=== PATIENT | female | born 1955 | race Caucasian/White ===

== ENCOUNTER → 2016-04-15 | Outpatient (CLI) | payer OTHER ==
--- NOTE | 2016-04-16 11:04 | ECHOF ---
Referral Reason:R07.89 chest pain MEASUREMENTS -------- HEIGHT: 154.9 cm WEIGHT: 109.8 kg BP: 140/62 RVIDd: 2.2 cm (< 3.3) IVSd: 1.3 cm (0.6 - 1.1) LVIDd: 4.5 cm (3.9 - 5.3) LVPWd: 1.2 cm (0.6 - 1.1) IVSs: 1.6 cm LVIDs: 2.3 cm LVPWs: 1.7 cm LA Diam: 2.8 cm (2.7 - 3.8) LAESV Index (A-L): 10.31 ml/m Ao Diam: 2.8 cm (2.0 - 3.7) MV EXCURSION: 12.842 mm (> 18.000) MV EF SLOPE: 39 mm/s (70 - 150) EPSS: 1.1 cm MV E Gerald: 0.80 m/s MV DecT: 260 ms MV A Gerald: 0.88 m/s MV E/A Ratio: 0.91 FINDINGS -------- Sinus rhythm. This was a technically difficult study with suboptimal views. The left ventricular size is normal. There is mild concentric left ventricular hypertrophy. Overall left ventricular systolic function is normal with, an EF between 60 - 65 %. The right ventricle is normal in size. The left atrium is normal in size. Normal LA size by volume 22+/-6 ml/m2. The right atrium is normal in size. 1.5mg of Definity was utilized for enhancement of images The aortic valve was not well visualized. Normal appearing mitral valve. No mitral regurgitation. The tricuspid valve appears structurally normal. No regurgitation noted The aortic root size is normal. There is no pericardial effusion. CONCLUSIONS -------- 1. Sinus rhythm. 2. The aortic valve was not well visualized. 3. Normal appearing mitral valve. 4. The tricuspid valve appears structurally normal. 5. The aortic root size is normal. 6. There is no pericardial effusion. 7. This was a technically difficult study with suboptimal views. 8. The left ventricular size is normal. 9. There is mild concentric left ventricular hypertrophy. 10. Overall left ventricular systolic function is normal with, an EF between 60 - 65 %. 11. The right ventricle is normal in size. 12. Normal LA size by volume 22+/-6 ml/m2. 13. The right atrium is normal in size. 14. 1.5mg of Definity was utilized for enhancement of images [employer]ILDING [employer]STRUCTION TEACHER: Naida Burnette RDCS
== END | disposition home or self-care (01) ==
LOC: RADECHMAIN 12:54
PROVIDERS: ATTEND Family Medicine
DX: I51.7 Cardiomegaly (principal)
CPT/HCPCS: C8929; Q9957; 93306

== ENCOUNTER 2016-11-05 21:21 | Observation (INO) | payer OTHER ==
[2016-11-05] MEDS ORDERED: RX INFO: IV CONTRAST WAS GIVEN 1 EACH MISC MISCELLANE PRN (21:49)
--- NOTE | 2016-11-05 21:52 | ED ---
General Adult HPI - General Chief complaint: GI Bleed Stated complaint: Rectal Bleeding-on Coumadin Time Seen by Provider: 11/05/16 21:32 Source: patient, RN notes reviewed Mode of arrival: ambulatory Limitations: no limitations - History of Present Illness Initial comments: 61-year-old female presents for evaluation of rectal bleeding. Patient had 3 episodes of bright red rectal bleeding today. Patient is on Coumadin for history of DVT. She had recent INR checked that was supratherapeutic, she was instructed to hold her Coumadin dose for the past 2 days. She also notes left lower abdominal pain. His been present for the past several days. No fevers or chills. No nausea vomiting or diarrhea. Each episode of bleeding was with a bowel movement. She does report significant amount of blood within the toilet. Additional past medical history of hypertension, hypercholesterolemia. - Related Data Home Medications Medication Instructions Recorded Confirmed Latanoprost Ophth [Xalatan 0.005%] 1 drop BOTH EYES HS 10/11/14 11/05/16 Simvastatin [Zocor] 20 mg PO HS 10/11/14 11/05/16 Warfarin [Coumadin] 5 mg PO WEFRSA 04/04/15 11/05/16 Chlorthalidone [Hygroton] 25 mg PO DAILY 11/05/16 11/05/16 Cholecalciferol (Vitamin D3) 2,000 unit PO DAILY 11/05/16 11/05/16 [Vitamin D3] Levothyroxine Sodium [Synthroid] 100 mcg PO DAILY 11/05/16 11/05/16 Losartan [Cozaar] 50 mg PO DAILY 11/05/16 11/05/16 Warfarin [Coumadin] 2.5 mg PO SUTUTH 11/05/16 11/05/16 Allergies Allergy/AdvReac Type Severity Reaction Status Date / Time Latex, Natural Rubber Allergy Rash/Hives Verified 11/05/16 21:56 morphine AdvReac Nausea & Verified 11/05/16 21:56 Vomiting Review of Systems ROS Statement: Those systems with pertinent positive or pertinent negative responses have been documented in the HPI. ROS Other: All systems not noted in ROS Statement are negative. Past Medical History Past Medical History: Deep Vein Thrombosis (DVT), Eye Disorder, GERD/Reflux, Hyperlipidemia, Hypertension, Thyroid Disorder Additional Past Medical History / Comment(s): BACK PAIN, GLAUCOMA History of Any Multi-Drug Resistant Organisms: None Reported Past Surgical History: Tubal Ligation Additional Past Surgical History / Comment(s): ALEX CATARACTS, BENIGN LUMP LEFT WRIST, neck surgery Additional Past Anesthesia/Blood Transfusion Reaction / Comment(s): HAD PONV ONCE, BUT STATES ATE WHEN WASN'T SUPPOSE TO Past Psychological History: No Psychological Hx Reported Smoking Status: Former smoker Past Alcohol Use History: None Reported Past Drug Use History: None Reported - Past Family History Mother Family Medical History: CVA/TIA General Exam Limitations: no limitations General appearance: alert, in no apparent distress Head exam: Present: atraumatic, normocephalic Eye exam: Present: normal appearance, PERRL ENT exam: Present: mucous membranes moist Neck exam: Present: normal inspection. Absent: tenderness Respiratory exam: Present: normal lung sounds bilaterally. Absent: respiratory distress Cardiovascular Exam: Present: regular rate, normal rhythm GI/Abdominal exam: Present: soft, tenderness (Left lower quadrant). Absent: guarding, rebound Rectal exam: Present: normal inspection, normal rectal tone Extremities exam: Present: normal inspection, normal capillary refill. Absent: pedal edema Back exam: Present: normal inspection Neurological exam: Present: alert, oriented X3, CN II-XII intact. Absent: motor sensory deficit Psychiatric exam: Present: normal affect, normal mood Skin exam: Present: warm, dry, intact. Absent: cyanosis, diaphoretic Course Vital Signs 11/05/16 21:26 Temperature 98.4 F Pulse Rate 82 Respiratory 18 Rate Blood Pressure 139/65 O2 Sat by Pulse 97 Oximetry Medical Decision Making - Medical Decision Making 59-year-old female presents chief complaint of left lower quadrant abdominal pain and rectal bleeding. Patient has no signs of active bleeding on examination, Hemoccult is negative although there has minimal stool in the rectal vault. She is on Coumadin. INR is subtherapeutic at 1.8. Hemoglobin stable at 13.7. She does have an elevated white blood cell count 14.8, creatinine of 1.8 from baseline of 1.1. I would like to obtain a CT of the abdomen and pelvis to evaluate for diverticulitis or acute diverticular bleeding , however the patient's serum creatinine is elevated. X-rays obtained negative for obstruction or intraperitoneal air. Patient is started on antibiotics for empiric treatment of diverticulitis. Rectal bleeding likely secondary to diverticulitis. Patient will be admitted for IV antibiotics, IV hydration for acute kidney injury and further evaluation treatment. Diagnosis: Acute kidney injury, diverticulitis, GI bleed - Lab Data Result diagrams: 11/05/16 21:51 11/05/16 21:48 Lab Results 11/05/16 11/05/16 11/05/16 Range/Units 21:48 21:48 21:48 WBC (3.8-10.6) k/uL RBC (3.80-5.40) m/uL Hgb (11.4-16.0) gm/dL Hct (34.0-46.0) % MCV (80.0-100.0) fL MCH (25.0-35.0) pg MCHC (31.0-37.0) g/dL RDW (11.5-15.5) % Plt Count (150-450) k/uL Neutrophils % % Lymphocytes % % Monocytes % % Eosinophils % % Basophils % % Neutrophils # (1.3-7.7) k/uL Lymphocytes # (1.0-4.8) k/uL Monocytes # (0-1.0) k/uL Eosinophils # (0-0.7) k/uL Basophils # (0-0.2) k/uL PT 17.1 H (9.0-12.0) sec INR 1.8 H (<1.2) APTT 30.3 H (22.0-30.0) sec Sodium 137 (137-145) mmol/L Potassium 3.9 (3.5-5.1) mmol/L Chloride 100 (98-107) mmol/L Carbon Dioxide 23 (22-30) mmol/L Anion Gap 14 mmol/L BUN 41 H (7-17) mg/dL Creatinine 1.80 H (0.52-1.04) mg/dL Est GFR (MDRD) Af Amer 35 (>60 ml/min/1.73 sqM) Est GFR (MDRD) Non-Af 29 (>60 ml/min/1.73 sqM) Glucose 132 H (74-99) mg/dL Plasma Lactic Acid Donnie 1.8 (0.7-2.0) mmol/L Calcium 9.4 (8.4-10.2) mg/dL Total Bilirubin 0.4 (0.2-1.3) mg/dL AST 21 (14-36) U/L ALT 30 (9-52) U/L Alkaline Phosphatase 82 (38-126) U/L Troponin I (0.000-0.034) ng/mL Total Protein 7.4 (6.3-8.2) g/dL Albumin 4.1 (3.5-5.0) g/dL Urine Color Urine Appearance (Clear) Urine pH (5.0-8.0) Ur Specific [place] (1.001-1.035) Urine Protein (Negative) Urine Glucose (UA) (Negative) Urine Ketones (Negative) Urine Blood (Negative) Urine Nitrite (Negative) Urine Bilirubin (Negative) Urine Urobilinogen (<2.0) mg/dL Ur Leukocyte Esterase (Negative) Urine RBC (0-5) /hpf Urine WBC (0-5) /hpf Ur Squamous Epith Cells (0-4) /hpf Urine Bacteria (None) /hpf Hyaline Casts (0-2) /lpf Stool Occult Blood (Negative) Blood Type Blood Type Recheck Antibody Screen Spec Expiration Date 11/05/16 11/05/16 11/05/16 Range/Units 21:48 21:48 21:51 WBC 14.8 H (3.8-10.6) k/uL RBC 4.50 (3.80-5.40) m/uL Hgb 13.7 (11.4-16.0) gm/dL Hct 40.5 (34.0-46.0) % MCV 89.9 (80.0-100.0) fL MCH 30.5 (25.0-35.0) pg MCHC 33.9 (31.0-37.0) g/dL RDW 14.6 (11.5-15.5) % Plt Count 233 (150-450) k/uL Neutrophils % 73 % Lymphocytes % 18 % Monocytes % 5 % Eosinophils % 3 % Basophils % 0 % Neutrophils # 10.8 H (1.3-7.7) k/uL Lymphocytes # 2.7 (1.0-4.8) k/uL Monocytes # 0.7 (0-1.0) k/uL Eosinophils # 0.4 (0-0.7) k/uL Basophils # 0.1 (0-0.2) k/uL PT (9.0-12.0) sec INR (<1.2) APTT (22.0-30.0) sec Sodium (137-145) mmol/L Potassium (3.5-5.1) mmol/L Chloride (98-107) mmol/L Carbon Dioxide (22-30) mmol/L Anion Gap mmol/L BUN (7-17) mg/dL Creatinine (0.52-1.04) mg/dL Est GFR (MDRD) Af Amer (>60 ml/min/1.73 sqM) Est GFR (MDRD) Non-Af (>60 ml/min/1.73 sqM) Glucose (74-99) mg/dL Plasma Lactic Acid Donnie (0.7-2.0) mmol/L Calcium (8.4-10.2) mg/dL Total Bilirubin (0.2-1.3) mg/dL AST (14-36) U/L ALT (9-52) U/L Alkaline Phosphatase (38-126) U/L Troponin I <0.012 (0.000-0.034) ng/mL Total Protein (6.3-8.2) g/dL Albumin (3.5-5.0) g/dL Urine Color Urine Appearance (Clear) Urine pH (5.0-8.0) Ur Specific [place] (1.001-1.035) Urine Protein (Negative) Urine Glucose (UA) (Negative) Urine Ketones (Negative) Urine Blood (Negative) Urine Nitrite (Negative) Urine Bilirubin (Negative) Urine Urobilinogen (<2.0) mg/dL Ur Leukocyte Esterase (Negative) Urine RBC (0-5) /hpf Urine WBC (0-5) /hpf Ur Squamous Epith Cells (0-4) /hpf Urine Bacteria (None) /hpf Hyaline Casts (0-2) /lpf Stool Occult Blood (Negative) Blood Type A Positive Blood Type Recheck No Antibody Screen NEGATIVE Spec Expiration Date 11/08/2016 - 234711/05/16 11/05/16 Range/Units 21:51 23:20 WBC (3.8-10.6) k/uL RBC (3.80-5.40) m/uL Hgb (11.4-16.0) gm/dL Hct (34.0-46.0) % MCV (80.0-100.0) fL MCH (25.0-35.0) pg MCHC (31.0-37.0) g/dL RDW (11.5-15.5) % Plt Count (150-450) k/uL Neutrophils % % Lymphocytes % % Monocytes % % Eosinophils % % Basophils % % Neutrophils # (1.3-7.7) k/uL Lymphocytes # (1.0-4.8) k/uL Monocytes # (0-1.0) k/uL Eosinophils # (0-0.7) k/uL Basophils # (0-0.2) k/uL PT (9.0-12.0) sec INR (<1.2) APTT (22.0-30.0) sec Sodium (137-145) mmol/L Potassium (3.5-5.1) mmol/L Chloride (98-107) mmol/L Carbon Dioxide (22-30) mmol/L Anion Gap mmol/L BUN (7-17) mg/dL Creatinine (0.52-1.04) mg/dL Est GFR (MDRD) Af Amer (>60 ml/min/1.73 sqM) Est GFR (MDRD) Non-Af (>60 ml/min/1.73 sqM) Glucose (74-99) mg/dL Plasma Lactic Acid Donnie (0.7-2.0) mmol/L Calcium (8.4-10.2) mg/dL Total Bilirubin (0.2-1.3) mg/dL AST (14-36) U/L ALT (9-52) U/L Alkaline Phosphatase (38-126) U/L Troponin I (0.000-0.034) ng/mL Total Protein (6.3-8.2) g/dL Albumin (3.5-5.0) g/dL Urine Color Yellow Urine Appearance Cloudy H (Clear) Urine pH 5.0 (5.0-8.0) Ur Specific [place] 1.020 (1.001-1.035) Urine Protein Negative (Negative) Urine Glucose (UA) Negative (Negative) Urine Ketones Negative (Negative) Urine Blood Negative (Negative) Urine Nitrite Negative (Negative) Urine Bilirubin Negative (Negative) Urine Urobilinogen <2.0 (<2.0) mg/dL Ur Leukocyte Esterase Trace H (Negative) Urine RBC <1 (0-5) /hpf Urine WBC 5 (0-5) /hpf Ur Squamous Epith Cells 3 (0-4) /hpf Urine Bacteria Occasional H (None) /hpf Hyaline Casts 10 H (0-2) /lpf Stool Occult Blood Negative (Negative) Blood Type Blood Type Recheck Antibody Screen Spec Expiration Date Disposition Clinical Impression: Lower GI bleed, Diverticulitis, Acute kidney injury Disposition: ADMITTED IP TO THIS [facility] Condition: Stable Referrals: Min Pacheco MD [Primary Care Provider] - 1-2 days Decision to Admit Reason: Admit from EC Decision Date: 11/06/16 Decision Time: 23:35
[2016-11-05 21:59] LABS: Basophils # (A) 0.1 k/uL (0-0.2); Basophils % (A) 0 %; CH 31.7; CHCM 35.4; Eosinophils # (A) 0.4 k/uL (0-0.7); Eosinophils % (A) 3 %; HCT 40.5 % (34.0-46.0); HDW 2.66; HGB 13.7 gm/dL (11.4-16.0); Luc # (Auto) 0.22; Luc % (Auto) 2; Lymphocytes # (A) 2.7 k/uL (1.0-4.8); Lymphocytes % (A) 18 %; MCH 30.5 pg (25.0-35.0); MCHC 33.9 g/dL (31.0-37.0); MCV 89.9 fL (80.0-100.0); Monocytes # (A) 0.7 k/uL (0-1.0); Monocytes % (A) 5 %; Neutrophils # (A) 10.8 k/uL (1.3-7.7); Neutrophils % (A) 73 %; RDW 14.6 % (11.5-15.5); WBC 14.8 k/uL (3.8-10.6); WBC (Perox) 15.34
[2016-11-05 22:07] LABS: INR 1.8 (<1.2); Partial Thromboplastin Time 30.3 sec (22.0-30.0); Prothrombin Time 17.1 sec (9.0-12.0)
[2016-11-05 22:08] LABS: Calcium 9.4 mg/dL (8.4-10.2); Potassium 3.9 mmol/L (3.5-5.1); Total Bilirubin 0.4 mg/dL (0.2-1.3); Total Protein 7.4 g/dL (6.3-8.2)
--- NOTE | 2016-11-05 23:23 | XR ---
EXAM: XR Abdomen Complete, 2 or More Views CLINICAL HISTORY: Reason: Pain TECHNIQUE: Frontal view of the abdomen/pelvis with upright view of the abdomen. COMPARISON: No relevant prior studies available. FINDINGS: Intraperitoneal space: No free air. Gastrointestinal tract: Stool throughout the colon. No dilation. Organs: Cholecystectomy clips noted. Bones/joints: Unremarkable. IMPRESSION: No acute findings. Stool noted throughout the colon.
[2016-11-05 23:30] LABS: Appearance,Urine Cloudy (Clear); Bacteria,Urine Occasional /hpf; Bilirubin,Urine Negative (Negative); Glucose,Urine (UA) Negative (Negative); Ketones,Urine Negative (Negative); Leukocyte Esterase,Urine Trace (Negative); Nitrite,Urine Negative (Negative); Particle Count 2291; Protein,Urine Negative (Negative); RBC,Urine <1 /hpf (0-5); Squamous Epithelial Cell,Urine 3 /hpf (0-4); UA Billing (MACRO vs. MICRO) MICRO; Urobilinogen,Urine <2.0 mg/dL (<2.0); WBC,Urine 5 /hpf (0-5)
[2016-11-06] MEDS ORDERED: NALOXONE 0.4 MG/ML 1 ML VIAL IV PRN
[2016-11-06] MEDS ORDERED: ACETAMINOPHEN TAB 325 MG TAB PO PRN
[2016-11-06] MEDS: metroNIDAZOLE-NS PMX 500 MG in SALINE 1 100ML.BAG IVPB SCH ×2 (00:45→08:52)
[2016-11-06] MEDS: SODIUM CHLORIDE 0.9% 1,000 ML IV SCH ×2 (00:45→08:53)
[2016-11-06 01:28] VITALS: BMI 44.3
[2016-11-06 03:19] VITALS: PULSE 68; RESP 16
[2016-11-06 08:12] VITALS: BP 120/61; TEMP 97.2
[2016-11-06] MEDS ORDERED: PANTOPRAZOLE 40 MG/10 ML VIAL IV SCH (09:00)
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
== END 2016-11-06 11:30 | disposition home or self-care (01) ==
LOC: EC 21:21 → 4MS4W 11-06
PROVIDERS: ADMIT Family Medicine; ATTEND Family Medicine
DX: N17.9 Acute kidney failure, unspecified (principal); K57.93 Diverticulitis of intestine, part unspecified, without perforation or abscess with bleeding; Z86.718 Personal history of other venous thrombosis and embolism; E66.9 Obesity, unspecified; Z68.41 Body mass index [BMI] 40.0-44.9, adult; Z79.01 Long term (current) use of anticoagulants; I10 Essential (primary) hypertension; E78.5 Hyperlipidemia, unspecified; E78.00 Pure hypercholesterolemia, unspecified; E03.9 Hypothyroidism, unspecified; D72.829 Elevated white blood cell count, unspecified; H40.9 Unspecified glaucoma; Z79.899 Other long term (current) drug therapy; Z88.5 Allergy status to narcotic agent; Z91.040 Latex allergy status; Z87.891 Personal history of nicotine dependence; Z82.0 Family history of epilepsy and other diseases of the nervous system
CPT/HCPCS: 99285 ×2; 96365; 96366; 96367; 96375; 36415; 86900; 86901; 80053; 83605; 84484; 85025; 85610; 85730; 86850; 82272; 81001; 74020; G0378; J0696; C9113

== ENCOUNTER → 2017-05-11 | Outpatient (CLI) | payer OTHER ==
--- NOTE | 2017-05-11 09:28 | US ---
EXAMINATION TYPE: US kidneys/renal and bladder DATE OF EXAM: 05/11/2017 COMPARISON: US CLINICAL HISTORY: N18.3 Chronic kidney ds stage 3. EXAM MEASUREMENTS: Right Kidney: 9.2 x 5.5 x 4.6 cm Left Kidney: 9.5 x 5.4 x 4.3 cm Post Void Residual Volume: 0.9 mL Right Kidney: No hydronephrosis or masses seen. Mild cortical thinning. Left Kidney: No hydronephrosis or masses seen. Mild cortical thinning. Bladder: wnl Bilateral Jets seen: Yes Normal Post Void Residual: Yes There is no evidence for hydronephrosis at this point in time. No nephrolithiasis is seen. No william s are identified. The urinary bladder is anechoic. Bilateral ureteral jets are seen. IMPRESSION: Mild cortical renal thinning compatible with the patient's known medical renal disease. No hydronephr osis or nephrolithiasis.
== END | disposition home or self-care (01) ==
LOC: RADUSWWP 07:51
PROVIDERS: ATTEND Internal Medicine Nephrology
DX: N18.3 Chronic kidney disease, stage 3 (moderate) (principal); N28.89 Other specified disorders of kidney and ureter
CPT/HCPCS: 76770

== ENCOUNTER → 2017-07-28 | Outpatient (CLI) | payer OTHER ==
--- NOTE | 2017-08-01 11:10 | MM ---
Reason for exam: screening (asymptomatic). Last mammogram was performed 2 years and 3 months ago. History: Patient is postmenopausal. Physical Findings: A clinical breast exam by your physician is recommended on an annual basis and results should be correlated with mammographic findings. MG Screening Mammo w CAD Bilateral CC and MLO view(s) were taken. Prior study comparison: April 14, 2015, bilateral MG screening mammo w CAD. November 17, 2012, bilateral digital screening mammo w/CAD. The breast tissue is heterogeneously dense. This may lower the sensitivity of mammography. There are multiple new subcentimeter masses predominating within the central outer left breast at posterior depth. Benign appearing bilateral calcifications. No suspicious abnormality in the right breast. ASSESSMENT: Incomplete: need additional imaging evaluation, BI-RAD 0 RECOMMENDATION: Ultrasound of the left breast. [facility] will attempt to contact patient to return for ultrasound.
== END | disposition home or self-care (01) ==
LOC: RADMAMWWP 08:05
PROVIDERS: ATTEND Family Medicine
DX: Z12.31 Encounter for screening mammogram for malignant neoplasm of breast (principal)
CPT/HCPCS: 77067

== ENCOUNTER → 2017-08-03 | Outpatient (CLI) | payer OTHER ==
--- NOTE | 2017-08-03 14:37 | USB ---
Reason for exam: additional evaluation requested from abnormal screening. History: Patient is postmenopausal. Physical Findings: Nurse did not find any significant physical abnormalities on exam. US Breast Workup Limited LT Left limited breast ultrasound including focal area of concern, retroareolar and axilla demonstrates a 0.4 x 0.3 x 0.4cm oval, solid lesion at 1 o'clock-solid and new on mammogram, suspicious finding, a 0.2cm calcification at 2 o'clock, a 0.4 x 0.2 x 0.4cm benign, oval, cystic lesion at 2 o'clock, a 0.3 x 0.2 x 0.4cm benign, oval, cystic lesion at 2 o'clock and a 0.6 x 0.4 x 0.4cm benign, oval, cystic lesion at 3 o'clock with questionable ductal ectasia. Nothing seen at 10 o'clock BB. These results were verbally communicated with the patient and result sheet given to the patient on 08/03/17. ASSESSMENT: Suspicious, BI-RAD 4 RECOMMENDATION: Ultrasound core biopsy of the left breast. Called Dr. Pacheco with mammographic findings and has scheduled an appointment for the patient for 08/25/17 at 10:[address] Starks. Biopsy scheduled for 08/11/17 at 10:00. PRELIMINARY REPORT CALLED AND FAXED TO DR. STARKS ON 08/03/17.
== END | disposition home or self-care (01) ==
LOC: RADUSWWP 08:28
PROVIDERS: ATTEND Family Medicine
DX: R92.8 Other abnormal and inconclusive findings on diagnostic imaging of breast (principal)

== ENCOUNTER → 2017-08-11 | Day surgery (SDC) | payer OTHER ==
[2017-08-11 11:37] VITALS: RESP 12
[2017-08-11 13:13] VITALS: BP 127/73; PULSE 79; TEMP 98.7
--- NOTE | 2017-08-12 10:32 | USB ---
EXAMINATION TYPE: US biopsy breast VAD LT DATE OF EXAM: 08/11/2017 CLINICAL HISTORY: R92.8 Abnormal Mammogram. TECHNIQUE: Ultrasound guided core biopsy of the left breast. COMPARISON: 08/03/2017 FINDINGS: The procedure of ultrasound guided core biopsy was explained to the patient. Benefits, alternatives, and risks were discussed. An informed consent was then obtained. Preprocedural timeout was performed. The patient was placed in supine positioning for imaging and for the procedure. The overlying skin was prepped and draped in usual sterile fashion. 10 cc of lidocaine buffered with bicarbonate was used as anesthetic into the skin and 7 cc of lidocaine with epinephrine was utilized to anesthetize the subcutaneous tissue up to 0.4 x 0.3 x 0.4cm oval, solid lesion at 1 o'clock position within the left breast. Under ultrasound guidance, a 12-gauge vacuum assisted biopsy gun device was used to obtain 4 core samples. Following this, a ribbon-shaped biopsy marker was left in lesion. The patient tolerated the procedure well without any immediate complication. The patient was kept in the radiology department for short stay after the procedure and then discharged home in stable condition. IMPRESSION: Successful, uncomplicated ultrasound guided core biopsy of the 0.4 x 0.3 x 0.4 cm solid mass at the 1:00 position within the left breast, full pathology results to follow. Pathology Results: Benign LEFT BREAST, NEEDLE CORE BIOPSIES: Benign breast parenchyma with para ductal inflammatory changes suggestive of duct ectasia or reaction to ruptured duct and fibrocystic spectrum changes including sclerosing adenosis, duct cystic changes and apocrine metaplasia. Intraductal and vascular mineralizations are identified. Recommendation Follow up ultrasound of the left breast in 6 months. [facility]
--- NOTE | 2017-08-12 11:29 | MM ---
Reason for exam: additional evaluation requested from abnormal screening. Last mammogram was performed less than 1 month ago. History: Patient is postmenopausal. MG Diagnostic Mammo LT Wo CAD CC and LM view(s) were taken of the left breast. Prior study comparison: July 28, 2017, bilateral MG screening mammo w CAD. April 14, 2015, bilateral MG screening mammo w CAD. ASSESSMENT: Post procedure mammogram for marker placement RECOMMENDATION: Ultrasound of the left breast in 6 months. PENDING PATHOLOGY RESULTS.
== END ==
LOC: RADUSWWP 11:00
PROVIDERS: ATTEND Surgery
DX: N60.22 Fibroadenosis of left breast (principal); N60.12 Diffuse cystic mastopathy of left breast; N60.82 Other benign mammary dysplasias of left breast; R92.8 Other abnormal and inconclusive findings on diagnostic imaging of breast; Z88.5 Allergy status to narcotic agent; Z91.040 Latex allergy status
CPT/HCPCS: 88305; 77065; 19083; A4648; J2001

== ENCOUNTER → 2018-01-31 | Outpatient (CLI) | payer OTHER ==
--- NOTE | 2018-01-31 09:40 | US ---
EXAMINATION TYPE: US kidneys/renal and bladder DATE OF EXAM: 01/31/2018 COMPARISON: US May 11, 2017. CT lumbar spine 2014. CLINICAL HISTORY: N18.3 CKD. CKD EXAM MEASUREMENTS: Right Kidney: 9.6 x 4.9 x 4.6 cm Left Kidney: 9.7 x 5.0 x 4.7 cm Large pt body habitus, difficult exam Right Kidney: Cortical thinning Left Kidney: Cortical thinning Bladder: wnl Bilateral Jets seen: No There is no evidence for hydronephrosis at this point in time. No nephrolithiasis is seen. No william s are identified. The urinary bladder is anechoic. Bilateral ureteral jets are not seen. Exam is suboptimal secondary to patient's large body habitus. IMPRESSION: No hydronephrosis is evident bilaterally. Cortical thinning in both kidneys is again seen. No signifi cant change from most recent ultrasound.
== END | disposition home or self-care (01) ==
LOC: RADUSWWP 06:42
PROVIDERS: ATTEND Internal Medicine Nephrology
DX: N18.3 Chronic kidney disease, stage 3 (moderate) (principal)
CPT/HCPCS: 76770

== ENCOUNTER → 2018-02-16 | Outpatient (CLI) | payer OTHER ==
--- NOTE | 2018-02-16 13:55 | MM ---
Reason for exam: follow-up at short interval from prior study. Last mammogram was performed 6 months ago. History: Patient is postmenopausal. Benign US biopsy breast VAD LT of the left breast, August 11, 2017. Physical Findings: Nurse did not find any significant physical abnormalities on exam. MG Diagnostic Mammo LT w CAD CC and MLO view(s) were taken of the left breast. Prior study comparison: August 11, 2017, left breast MG diagnostic mammo LT wo CAD. July 28, 2017, bilateral MG screening mammo w CAD. There are scattered fibroglandular densities. Stable benign calcifications. Previous ultrasound biopsy in the left breast. There is chronic nodularity in the left breast. These results were verbally communicated with the patient and result sheet given to the patient on 02/16/18. ASSESSMENT: Incomplete: need additional imaging evaluation, BI-RAD 0 RECOMMENDATION: Ultrasound of the left breast.
--- NOTE | 2018-02-16 13:56 | USB ---
Reason for exam: additional evaluation requested from abnormal screening. History: Patient is postmenopausal. Benign US biopsy breast VAD LT of the left breast, August 11, 2017. US Breast LT Left complete breast ultrasound includes all four quadrants, the retroareolar region and axilla. Finding demonstrates no cystic or solid lesion seen. These results were verbally communicated with the patient and result sheet given to the patient on 02/16/18. ASSESSMENT: Negative, BI-RAD 1 RECOMMENDATION: Return to routine screening mammogram schedule for both breasts. Back on schedule.
== END ==
LOC: RADMAMWWP 08:42
PROVIDERS: ATTEND Surgery
DX: R92.8 Other abnormal and inconclusive findings on diagnostic imaging of breast (principal)
CPT/HCPCS: 77065

== ENCOUNTER → 2018-11-14 | Outpatient (CLI) | payer OTHER ==
--- NOTE | 2018-11-14 17:21 | US ---
EXAMINATION TYPE: US venous doppler duplex LE LT DATE OF EXAM: 11/14/2018 4:22 PM COMPARISON: NONE CLINICAL HISTORY: 63-year-old female with M79.662 Pain in LLE R22.42 Swelling LLE. Pain and swelling. SIDE PERFORMED: Left TECHNIQUE: The lower extremity deep venous system is examined utilizing real time linear array sonog carmen with graded compression, doppler sonography and color-flow sonography. FINDINGS: VESSELS IMAGED: External Iliac Vein (EIV) Common Femoral Vein Deep Femoral Vein Greater Saphenous Vein * Femoral Vein Popliteal Vein Small Saphenous Vein * Proximal Calf Veins (* superficial vessels) Left Leg: Negative for DVT IMPRESSION: No evidence for DVT within the left lower extremity imaged from the groin to the upper calf.
== END | disposition home or self-care (01) ==
LOC: RADUSWWP 15:44
PROVIDERS: ATTEND Internal Medicine Hematology & Oncology
DX: M79.662 Pain in left lower leg (principal)

== ENCOUNTER → 2019-04-10 | Outpatient (CLI) | payer OTHER ==
--- NOTE | 2019-04-11 13:07 | MM ---
Reason for exam: screening (asymptomatic). Last mammogram was performed 1 year and 2 months ago. History: Patient is postmenopausal. Benign US biopsy breast VAD LT of the left breast, August 11, 2017. Physical Findings: A clinical breast exam by your physician is recommended on an annual basis and results should be correlated with mammographic findings. MG Screening Mammo w CAD Bilateral CC, MLO, and XCCL view(s) were taken. Prior study comparison: February 16, 2018, left breast MG diagnostic mammo LT w CAD. August 11, 2017, left breast MG diagnostic mammo LT wo CAD. There are scattered fibroglandular densities. Previous mammotome biopsy in the left breast. There is chronic nodularity bilaterally. Benign vascular calcifications. No significant changes when compared with prior studies. ASSESSMENT: Benign, BI-RAD 2 RECOMMENDATION: Routine screening mammogram of both breasts in 1 year.
== END | disposition home or self-care (01) ==
LOC: RADMAMWWP 09:41
PROVIDERS: ATTEND Nurse Practitioner Family
DX: Z12.31 Encounter for screening mammogram for malignant neoplasm of breast (principal)
CPT/HCPCS: 77067

== ENCOUNTER → 2020-05-26 | Outpatient (CLI) | payer MEDICARE, OTHER ==
--- NOTE | 2020-05-27 13:40 | USB ---
Reason for exam: clinical finding. History: Patient is postmenopausal. Benign US biopsy breast VAD LT of the left breast, August 11, 2017. Indicated problem(s): lump or thickening in the left breast. Physical Findings: Nurse did not find any significant physical abnormalities on exam. US Breast BILAT Right complete breast ultrasound includes all four quadrants, the retroareolar region and axilla. Finding demonstrates a 0.3 x 0.4 x 0.2cm cystic lesion at 12 o'clock and a 0.5 x 0.7 x 0.3cm cystic lesion at 3 o'clock. Left complete breast ultrasound includes all four quadrants, the retroareolar region and axilla. Finding demonstrates a 0.3 x 0.2 x 0.3cm cystic lesion at 3 o'clock. These results were verbally communicated with the patient and result sheet given to the patient on 05/26/20. ASSESSMENT: Benign, BI-RAD 2 RECOMMENDATION: Routine screening mammogram of both breasts in 1 year. Back on schedule.
== END | disposition home or self-care (01) ==
LOC: RADUSWWP 09:00
PROVIDERS: ATTEND Internal Medicine
DX: Z78.0 Asymptomatic menopausal state (principal)

== ENCOUNTER → 2020-07-24 | Outpatient (CLI) | payer MEDICARE, OTHER ==
--- NOTE | 2020-07-24 14:28 | XR ---
EXAMINATION TYPE: XR abdomen 1V DATE OF EXAM: 07/24/2020 COMPARISON: NONE HISTORY: Pain TECHNIQUE: One view abdominal series FINDINGS: The osseous structures are intact. The bowel gas pattern is nonspecific. Lung bases are clear. Surg ical clips involving the right upper quadrant. Hypertrophic and degenerative change of the spine. Elijah cifications in the pelvis are nonspecific. Arthropathy of the hips. IMPRESSION: 1. Nonspecific abdomen.
[2020-07-24 14:32] LABS: Appearance,Urine Cloudy (Clear); Bacteria,Urine Occasional /hpf; Bilirubin,Urine Negative (Negative); Blood,Urine Negative (Negative); Color,Urine Yellow; Glucose,Urine (UA) Negative (Negative); Ketones,Urine Negative (Negative); Leukocyte Esterase,Urine Moderate (Negative); Mucus,Urine Rare /hpf; Nitrite,Urine Negative (Negative); PH, Urine 5.5 (5.0-8.0); Protein,Urine Trace (Negative); RBC,Urine 1 /hpf (0-5); Specific Gravity,Urine 1.027 (1.001-1.035); Squamous Epithelial Cell,Urine 3 /hpf (0-4); Urobilinogen,Urine <2.0 mg/dL (<2.0); WBC,Urine 9 /hpf (0-5)
[2020-07-24 20:11] LABS: Basophils # (A) 0.07 X 10*3/uL (0.00-0.10); Basophils % (A) 0.5 %; Eosinophils # (A) 0.24 X 10*3/uL (0.04-0.35); Eosinophils % (A) 1.9 %; HCT 42.6 % (37.2-46.3); HGB 14.3 g/dL (12.0-15.0); Lymphocytes # (A) 2.28 X 10*3/uL (0.90-5.00); Lymphocytes % (A) 17.7 %; MCH 31.7 pg (27.0-32.0); MCHC 33.6 g/dL (32.0-37.0); MCV 94.5 fL (80.0-97.0); Mean Platelet Volume 11.2 fL (9.5-12.2); Monocytes # (A) 0.79 X 10*3/uL (0.20-1.00); Monocytes % (A) 6.1 %; Neutrophils # (A) 9.34 X 10*3/uL (1.80-7.70); Neutrophils % (A) 72.8 %; Platelet Count 270 X 10*3/uL (140-440); RBC 4.51 X 10*6/uL (4.10-5.20); WBC 12.85 X 10*3/uL (4.50-10.00)
[2020-07-25 16:32] LABS: African American GFR (CKD) 41.6 (60.0-200.0); Albumin 4.1 g/dL (3.80-4.90); Albumin/Globulin Ratio 1.32 (1.60-3.17); Anion Gap 17.8 mmol/L (4.00-12.00); Calcium 10.1 mg/dL (8.7-10.3); Carbon Dioxide 20.2 mmol/L (21.6-31.8); Globulin 3.1 g/dL (1.6-3.3); Non-African American GFR(CKD) 35.9 (60.0-200.0); Potassium 3.8 mmol/L (3.5-5.5); Total Bilirubin 0.6 mg/dL (0.2-1.2); Total Protein 7.2 g/dL (6.2-8.2); Uric Acid 8.3 mg/dL (2.9-7.7)
== END | disposition home or self-care (01) ==
LOC: LABWHC1 13:15
PROVIDERS: ATTEND Family Medicine
DX: E03.9 Hypothyroidism, unspecified (principal); K62.5 Hemorrhage of anus and rectum; E55.9 Vitamin D deficiency, unspecified; R10.32 Left lower quadrant pain
CPT/HCPCS: 36415; 74018; 80053; 81001; 82306; 84443; 84550; 85025

== ENCOUNTER → 2020-08-15 | Outpatient (CLI) | payer MEDICARE, OTHER ==
[2020-08-15 08:30] LABS: Albumin 4.4 g/dL (3.5-5.0); Calcium 10.1 mg/dL (8.4-10.2); Total Bilirubin 0.9 mg/dL (0.2-1.3); Total Protein 7.8 g/dL (6.3-8.2)
[2020-08-15 08:45] LABS: Potassium 4.6 mmol/L (3.5-5.1)
--- NOTE | 2020-08-15 14:19 | CT ---
EXAMINATION TYPE: CT abdomen pelvis w con DATE OF EXAM: 08/15/2020 COMPARISON: INDICATION: LLQ pain DLP: 1935.80 mGycm, Automated exposure control for dose reduction was used. CONTRAST: 100 ml mL of Isovue 300. Study performed without Oral Contrast TECHNIQUE: Axial images were obtained from above the diaphragm to the pubic rami in the axial plane a t 5 mm thick sections. Reconstructed images are reviewed on the computer in the coronal plane. FINDINGS: Limited CT sections are obtained the lung bases. The lung bases are clear. CT ABDOMEN: Liver: Normal Spleen: Normal Pancreas: There is some fatty infiltration within the pancreas. Adrenal glands: The adrenal glands are normal. Gallbladder: Normal Kidneys: No masses are evident. No hydronephrosis is present. No cysts are present. Delayed images were obtained through the kidneys, which remain unremarkable. There is a right retrocaval renal suzie ry. Malrotation of the right kidney is present. Aorta: Vascular calcification is within the aorta. Inferior vena cava: Normal. CT PELVIS: Loops of bowel within the abdomen and pelvis are normal. There are loops of bowel which are incom pletely distended or lack oral contrast limiting their evaluation. No suspicious acute diverticulitis is evident. There are couple of diverticula evident within the colon. Appendix: Normal as visualized. Urinary bladder: Normal. Genitourinary structures: Uterus is normal. Adnexal regions are clear. Osseous structures: No suspicious lytic or sclerotic lesions. IMPRESSIONS: 1. No suspicious acute changes to account for left lower quadrant pain.
== END | disposition home or self-care (01) ==
LOC: RADCTMAIN 07:47
PROVIDERS: ATTEND Family Medicine
DX: R10.32 Left lower quadrant pain (principal)
CPT/HCPCS: 80053; 74177; 36415; Q9967

== ENCOUNTER → 2021-01-23 | Outpatient (CLI) | payer MEDICARE, OTHER ==
--- NOTE | 2021-01-23 08:18 | CT ---
EXAMINATION TYPE: CT brain wo con DATE OF EXAM: 01/23/2021 COMPARISON: 08/26/2014 INDICATION: Abnormal eye exam per patient. Occasional slurred speech. DLP: 1162.8 mGycm, Automated exposure control for dose reduction was used. CONTRAST: None CT of the brain is performed utilizing 3 mm thick sections through the posterior fossa and 3 mm thick sections through the remaining calvarium. Study is performed within 24 hours of arrival to the hosp ital. No abnormal hyperdensity is present to suggest an acute intracranial hemorrhage. No mass lesion is evident. No acute infarcts are evident. Minimal periventricular white matter changes may be present which may be chronic in nature. MRI may be more sensitive for subtle neurologic changes. Ventricles and sulci are appropriate for the patient age. Paranasal sinuses and mastoid air cells within the [id number] are clear. Hyperostosis frontalis internus is present. Orbits as visualized on the exam appear unremarkable. IMPRESSIONS: 1. Some chronic appearing subtle white matter changes may be in the periventricular white matter. M RI would be more sensitive for evaluation.
== END | disposition home or self-care (01) ==
LOC: RADCTMAIN 07:48
PROVIDERS: ATTEND Family Medicine
DX: R93.0 Abnormal findings on diagnostic imaging of skull and head, not elsewhere classified (principal)
CPT/HCPCS: 70450

== ENCOUNTER → 2021-06-12 | Outpatient (CLI) | payer MEDICARE, OTHER ==
--- NOTE | 2021-06-12 16:42 | US ---
EXAMINATION TYPE: US kidneys/renal and bladder DATE OF EXAM: 06/12/2021 COMPARISON: NONE CLINICAL HISTORY: R79.89 OTHER SPECIFIED ABNORMAL FINDINGS OF BLOOD. elevated creatinine EXAM MEASUREMENTS: Right Kidney: 7.9 x 4.0 x 5.3 cm Left Kidney: 8.8 x 3.9 x 5.3 cm Right Kidney: No hydronephrosis or masses seen, small in size Left Kidney: No hydronephrosis or masses seen, small in size Bladder: Sonolucent. No discrete mass identified. Urinary bladder is limited in distention. IMPRESSION: 1. Findings suggestive of some renal atrophy.
== END | disposition home or self-care (01) ==
LOC: RADUSWWP 08:06
PROVIDERS: ATTEND Family Medicine
DX: R79.89 Other specified abnormal findings of blood chemistry (principal)
CPT/HCPCS: 76770

== ENCOUNTER 2022-09-06 12:53 | Inpatient (IN) | payer MEDICARE, OTHER ==
[2022-09-06] MEDS ORDERED: SODIUM CHLORIDE 0.9% 1,000 ML IV ONE (14:53)
[2022-09-06] MEDS ORDERED: ONDANSETRON 4 MG/2 ML VIAL IVP STA (14:53)
[2022-09-06 15:23] LABS: Basophils # (A) 0.1 k/uL (0-0.2); Basophils % (A) 0 %; Eosinophils # (A) 0.3 k/uL (0-0.7); Eosinophils % (A) 2 %; HCT 40.8 % (34.0-46.0); HGB 13.6 gm/dL (11.4-16.0); Lymphocytes # (A) 2.1 k/uL (1.0-4.8); Lymphocytes % (A) 12 %; MCH 31.3 pg (25.0-35.0); MCHC 33.4 g/dL (31.0-37.0); MCV 93.8 fL (80.0-100.0); Mean Platelet Volume 8.6; Monocytes # (A) 0.7 k/uL (0-1.0); Monocytes % (A) 4 %; Neutrophils % (A) 81 %; Platelet Count 308 k/uL (150-450); RBC 4.35 m/uL (3.80-5.40); RDW 12.9 % (11.5-15.5); WBC 17.3 k/uL (3.8-10.6)
[2022-09-06 15:32] LABS: ALT 20 U/L (4-34); AST 23 U/L (14-36); African American GFR (CKD) 19 (>60 ml/min/1.73 sqM); Albumin 4.1 g/dL (3.5-5.0); Alkaline Phosphatase 136 U/L (38-126); Anion Gap 14 mmol/L; Blood Urea Nitrogen 66 mg/dL (7-17); Calcium 9.6 mg/dL (8.4-10.2); Carbon Dioxide 27 mmol/L (22-30); Chloride 96 mmol/L (98-107); Glucose 273 mg/dL (74-99); Non-African American GFR(CKD) 17 (>60 ml/min/1.73 sqM); Potassium 4.1 mmol/L (3.5-5.1); Sodium 137 mmol/L (137-145); Total Bilirubin 0.9 mg/dL (0.2-1.3); Total Protein 7.8 g/dL (6.3-8.2)
[2022-09-06 15:42] LABS: Appearance,Urine Cloudy (Clear); Bacteria,Urine Many /hpf; Bilirubin,Urine Negative (Negative); Blood,Urine Trace (Negative); Color,Urine Yellow; Glucose,Urine (UA) 4+ (Negative); Hyaline Casts,Urine 3 /lpf (0-2); Ketones,Urine Negative (Negative); Leukocyte Esterase,Urine Large (Negative); Mucus,Urine Rare /hpf; Nitrite,Urine Positive (Negative); PH, Urine 5.5 (5.0-8.0); Protein,Urine 1+ (Negative); RBC,Urine 8 /hpf (0-5); Specific Gravity,Urine 1.016 (1.001-1.035); Squamous Epithelial Cell,Urine 13 /hpf (0-4); Urobilinogen,Urine <2.0 mg/dL (<2.0); WBC,Urine 96 /hpf (0-5)
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
[2022-09-06] MEDS ORDERED: NALOXONE 0.4 MG/ML 1 ML VIAL IV PRN (17:09)
[2022-09-06] MEDS: SODIUM CHLORIDE 0.9% 1,000 ML IV SCH (17:46)
[2022-09-06] MEDS ORDERED: ONDANSETRON 4 MG/2 ML VIAL IVP PRN (21:09)
[2022-09-06] MEDS: LATANOPROST 0.005% OPHTH DROPS 2.5 ML BTL BOTH EYES SCH (21:27)
[2022-09-07] MEDS: SODIUM CHLORIDE 0.9% 1,000 ML IV SCH ×2 (08:13→20:17)
[2022-09-07 08:53] LABS: Basophils % (A) 0.8 %; Eosinophils # (A) 0.24 X 10*3/uL (0.04-0.35); Eosinophils % (A) 1.8 %; HCT 35.6 % (37.2-46.3); HGB 11.6 d/dL (12.0-15.0); Lymphocytes % (A) 20.5 %; MCH 30.9 pg (27.0-32.0); MCHC 32.6 d/dL (32.0-37.0); MCV 94.7 FL (80.0-97.0); Monocytes # (A) 0.73 X 10*3/uL (0.20-1.00); Monocytes % (A) 5.5 %; NRBC Per 100 WBC 0 X 10*3/uL (0.00-0.01); Neutrophils # (A) 9.34 X 10*3/uL (1.80-7.70); Neutrophils % (A) 70.9 %; Platelet Count 250 X 10*3/uL (140-440); RBC 3.76 X 10*6/uL (4.10-5.20); RDW 12.9 % (11.5-14.5); WBC 13.17 X 10*3/uL (4.50-10.00)
[2022-09-07 09:36] LABS: BUN/Creat Ratio 22.57 Ratio (12.00-20.00); Blood Urea Nitrogen 51.9 mg/dL (9.0-27.0); Calcium 8.9 mg/dL (8.7-10.3); Carbon Dioxide 23.6 mmol/L (21.6-31.8); Chloride 102 mmol/L (96-109); Glucose 186 mg/dL (70-110); Sodium 140 mmol/L (135-145)
[2022-09-07 11:14] VITALS: BMI 26.5
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
[2022-09-07] MEDS ORDERED: MELATONIN 5 MG TABLET PO PRN (19:28)
[2022-09-07] MEDS: ACETAMINOPHEN TAB 325 MG TAB PO PRN (20:16)
[2022-09-07] MEDS: LATANOPROST 0.005% OPHTH DROPS 2.5 ML BTL BOTH EYES SCH (20:17)
[2022-09-08] MEDS ORDERED: DEXTROSE 50% SYRINGE 50 ML IVP PRN ×2 (02:05)
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
[2022-09-08 05:28] LABS: Glucose,Whole Blood 180 mg/dL (70-110)
[2022-09-08] MEDS: INSULIN ASPART (NovoLOG) 100 UNIT/ML VIAL SQ SCH ×4 (06:46→21:19)
--- NOTE | 2022-09-08 09:15 | CA ---
Transthoracic Echo Report Name: Carmen Todd Age: 67 Gender: F : 1955 Exam Date: 09/07/2022 13:56 Exam Location: [facility] Ht (in): 63 Wt (lb): 150 Ordering Physician: Kimmy Casas Attending/Referring Phys: [id number], Yessenia Chicken Stuffer Josh Chairez Procedure CPT: Indications: LV function, CP Cardiac Hx: Technical Quality: Very technically difficult study Contrast 1: Lumason Total Dose (mL): 5 Contrast 2: Total Dose (mL): MEASUREMENTS (Male / Female) Normal Values 2D ECHO LV Diastolic Diameter PLAX 3.9 cm 4.2 - 5.9 / 3.9 - 5.3 cm LV Systolic Diameter PLAX 2.8 cm IVS Diastolic Thickness 1.1 cm 0.6 - 1.0 / 0.6 - 0.9 cm LVPW Diastolic Thickness 1.0 cm 0.6 - 1.0 / 0.6 - 0.9 cm LV Relative Wall Thickness 0.5 RV Internal Dim ED PLAX 2.3 cm LVOT Diameter 2.2 cm Aortic Root Diameter 3.0 cm LA Systolic Diameter LX 1.7 cm 3.0 - 4.0 / 2.7 - 3.8 cm LV Diastolic Volume MOD BP 26.2 cm??? 67 - 155 / 56 - 104 cm??? LV Systolic Volume MOD BP 9.9 cm??? 22 - 58 / 19 - 49 cm??? LV Ejection Fraction MOD BP 62.0 % >= 55 % LV Cardiac Index MOD BP 814.7 cm???/min???m??? LV Diastolic Volume MOD 4C 38.1 cm??? LV Systolic Volume MOD 4C 12.9 cm??? LV Ejection Fraction MOD 4C 66.2 % LV Cardiac Index MOD 4C 1264.7 cm???/min???m??? LV Diastolic Length 4C 6.4 cm LV Systolic Length 4C 4.8 cm LV Diastolic Volume MOD 2C 16.6 cm??? LV Systolic Volume MOD 2C 7.2 cm??? LV Ejection Fraction MOD 2C 56.3 % LV Cardiac Index MOD 2C 468.5 cm???/min???m??? LV Diastolic Length 2C 5.8 cm LV Systolic Length 2C 5.2 cm LA Volume 25.3 cm??? 18 - 58 / 22 - 52 cm??? DOPPLER AV Peak Velocity 115.8 cm/s AV Peak Gradient 5.4 mmHg LVOT Peak Velocity 113.3 cm/s LVOT Peak Gradient 5.1 mmHg AV Area Cont Eq pk 3.8 cm??? MV Peak Velocity 150.3 cm/s MV Peak Gradient 9.0 mmHg MV Mean Velocity 67.7 cm/s MV Mean Gradient 2.2 mmHg MV Velocity Time Integral 28.7 cm Mitral E Point Velocity 69.3 cm/s Mitral A Point Velocity 97.0 cm/s Mitral E to A Ratio 0.7 MV Deceleration Time 297.0 ms MV E' Velocity 7.9 cm/s Mitral E to MV E' Ratio 8.8 TR Peak Velocity 105.6 cm/s TR Peak Gradient 4.5 mmHg Right Ventricular Systolic Press 9.5 mmHg FINDINGS Left Ventricle Mildly increased septal wall thickness. Mildly increased posterior wall thickness. Left ventricular ejection fraction is estimated at 55-60 %. No obvious regional wall motion abnormality appreciated however views are limited and echo contrast was not used Right Ventricle Normal right ventricular size. Right Atrium Normal right atrial size. Left Atrium Normal left atrial size. Mitral Valve No mitral stenosis. No mitral regurgitation. Aortic Valve Aortic valve not well visualized. No aortic stenosis. No aortic regurgitation. Tricuspid Valve Tricuspid valve not well visualized. Trace TR. Pulmonic Valve Pulmonic valve not well visualized. No pulmonic regurgitation. Pericardium No pericardial effusion Aorta Normal size aortic root. CONCLUSIONS Technically very difficuly study with limites views. Normal LV size, normal global LV systolic function. Estimated LVEF 55-60% No obvious regional wall motion abnormality appreciated however views are limited and echo contrast was not used No significant valvular dysfunction No significant chamber size abnormality No prior echo to compare with Previewed by: Dr Chuck Espana (Electronically Signed) Final Date: 07 September 2022 15:47
[2022-09-08] MEDS: EZETIMIBE 10 MG TAB PO SCH (09:16)
[2022-09-08] MEDS: ATORVASTATIN 20 MG TAB PO SCH (09:16)
[2022-09-08] MEDS: ASPIRIN 81 MG PO SCH (09:16)
[2022-09-08] MEDS: LOSARTAN 50 MG TAB PO SCH (09:16)
[2022-09-08] MEDS: CHLORTHALIDONE 25 MG TAB PO SCH (09:16)
[2022-09-08] MEDS: FAMOTIDINE 20 MG TAB PO SCH (09:16)
[2022-09-08] MEDS: HEPARIN SODIUM,PORCINE/PF 5,000 UNIT/0.5 ML SYRINGE SQ SCH ×2 (09:17→17:33)
[2022-09-08 11:17] LABS: Glucose,Whole Blood 188 mg/dL (70-110)
[2022-09-08 14:35] LABS: Eosinophils # (A) 0.26 X 10*3/uL (0.04-0.35); Eosinophils % (A) 2.5 %; HCT 36.6 % (37.2-46.3); Lymphocytes # (A) 2.32 X 10*3/uL (0.90-5.00); Lymphocytes % (A) 22.2 %; MCH 31.3 pg (27.0-32.0); MCHC 32.8 d/dL (32.0-37.0); MCV 95.3 FL (80.0-97.0); Mean Platelet Volume 10.9 FL (9.5-12.2); Monocytes # (A) 0.67 X 10*3/uL (0.20-1.00); Monocytes % (A) 6.4 %; NRBC Per 100 WBC 0 X 10*3/uL (0.00-0.01); Neutrophils # (A) 7.04 X 10*3/uL (1.80-7.70); Neutrophils % (A) 67.4 %; Platelet Count 248 X 10*3/uL (140-440); RBC 3.84 X 10*6/uL (4.10-5.20); RDW 13.1 % (11.5-14.5); WBC 10.44 X 10*3/uL (4.50-10.00)
--- NOTE | 2022-09-08 14:40 | P.PN ---
Subjective HISTORY OF PRESENT ILLNESS: This is a 67 year old female with a past medical history significant for hypertension, hyperlipidemia, and diabetes. 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 We have been asked to see the patient in consultation for chest pain. Patient examined at the bedside. Patient states she has been feeling unwell for about two weeks. She reports diarrhea, decreased appetite, and decreased oral intake for the past 2 weeks. She states that she lost approximately 30 pounds during that time. The patient also reports having burning in her urine. She presented to the hospital for further evaluation. The patient was found to have a urinary tract infection and received a dose of antibiotics in the emergency room. The patient reports having an episode of chest pain this afternoon. She states that the pain was in the middle of her chest and went into her left arm and shoulder blade. She states that the pain is worse with yawning. She also reports earlier she was having worsening pain with deep inspiration but not at the time of examination. The patient reports that her diarrhea has improved along with her appetite. She also reports improvement in her urinary symptoms. She denies any history of coronary artery disease. She reports having a stress test several years ago which was normal to her knowledge. She denies any previous history of having a cardiac catheterization. She is a former cigarette smoker and states that she quit smoking many years ago. * EKG reveals sinus mechanism with first-degree AV block. No signs of acute ischemia * Laboratory data: W BC 13.17. Hemoglobin 11.6. Platelet count 250. Sodium 140. Potassium 4.0. BUN 51.9. Creatinine 2.3. Troponin negative 1 * Current home cardiac medications include aspirin 81 mg daily, losartan 50 mg daily, chlorthalidone 25 mg daily, Zetia 10 mg daily, simvastatin 40 mg daily * Most recent echocardiogram obtained in March 2016 revealing ejection fraction 60-65% 09/08/2022 Patient examined this afternoon. Patient is sitting up in the chair. Patient currently denies chest pain or pressure. She reports having mild episodes of chest pain on and off yesterday that is worsened with deep inspiration. Troponins have been negative. Echocardiogram completed revealing ejection fraction 55-60% with no obvious regional wall motion abnormalities, no significant valvular dysfunction, and no significant chamber size abnormalities. PHYSICAL EXAM: VITAL SIGNS: Reviewed. GENERAL: Well-developed in no acute distress. HEENT: Head is normocephalic. Pupils are equal, round. Sclerae anicteric. Mucous membranes of the mouth are moist. Neck supple. No JVD or thyromegaly LUNGS: Respirations even and unlabored. Lungs essentially clear to auscultation bilaterally. HEART: Regular rate and rhythm. S1 and S2 heard. ABDOMEN: Soft. Nondistended. Nontender. EXTREMITIES: Normal range of motion. No clubbing or cyanosis. Peripheral pulses intact. No lower extremity edema NEUROLOGIC: Awake and alert. Oriented x 3. ASSESSMENT: Urinary tract infection Leukocytosis Chest pain, troponins negative 1 and EKG nonischemic, acute coronary syndrome ruled out Diarrhea 2 weeks Decreased appetite with decreased oral intake, x 2 weeks Hypertension Hyperlipidemia Diabetes PLAN: 2-D echo obtained and reviewed with no abnormalities noted No further inpatient recommendations from a cardiac standpoint Patient may follow up post discharge with Dr. Espana We will sign off. Please reconsult if needed. Nurse practitioner note has been reviewed by physician. Signing provider agrees with the documented findings, assessment, and plan of care. Dr. Espana's Addendum Atypical chest pain. Ruled out acute coronary syndrome UTI with leukocytosis Diarrhea Hypertension, dyslipidemia, diabetes Morbid obesity Resting echocardiogram shows normal LV systolic function and normal wall motion abnormality. No significant valvular dysfunction. Patient is cleared for discharge from cardiology standpoint. Her chest pain has resolved. She was advised to follow-up outpatient with the cardiology clinic in 2-4 weeks I have personally seen and examined the patient. I have personally performed all the components of medical care documented above including formulating the assessment and plan. I have personally reviewed the relevant labs, imaging and other diagnostics. I have discussed this in detail with my AIR TABLE OPERATOR who has helped me with this documentation. I have carefully reviewed this document before finalizing. Total time spent reviewing medical chart, examining patient, counselling patient and documentation 30 mins Thank you for letting cardiology team participating in this patient's care. Dr. Chuck Espana MD Cardiovascular Disease Objective - Vital Signs Vital signs: Vital Signs Temp 97.9 F 09/08/22 13:33 Pulse 69 09/08/22 13:33 Resp 17 09/08/22 13:33 BP 103/68 09/08/22 13:33 Pulse Ox 96 09/08/22 13:33 FiO2 Intake & Output 09/07/22 09/08/22 09/08/22 18:59 06:59 18:59 Intake Total 1080 Balance 1080 Weight 68.039 kg Intake: Oral 1080 Other: Voiding Method Toilet Toilet # Voids 3 2 1 - Labs CBC & Chem 7: 09/08/22 05:48 09/08/22 05:48 Labs: Abnormal Lab Results - Last 24 Hours (Table) 09/08/22 09/08/22 09/08/22 Range/Units 05:27 05:48 11:15 WBC 10.44 H (4.50-10.00) X 10*3/uL RBC 3.84 L (4.10-5.20) X 10*6/uL Hct 36.6 L (37.2-46.3) % POC Glucose (mg/dL) 180 H 188 H (70-110) mg/dL Microbiology - Last 24 Hours (Table) 09/06/22 17:40 Blood Culture - Preliminary Blood 09/06/22 17:25 Blood Culture - Preliminary Blood
[2022-09-08 14:47] LABS: BUN/Creat Ratio 19.22 Ratio (12.00-20.00); Blood Urea Nitrogen 34.6 mg/dL (9.0-27.0); Calcium 8.6 mg/dL (8.7-10.3); Carbon Dioxide 23.6 mmol/L (21.6-31.8); Chloride 103 mmol/L (96-109); Glucose 178 mg/dL (70-110); Potassium 3.8 mmol/L (3.5-5.5); Sodium 140 mmol/L (135-145)
[2022-09-08 16:26] LABS: Glucose,Whole Blood 155 mg/dL (70-110)
[2022-09-08 20:53] LABS: Glucose,Whole Blood 255 mg/dL (70-110)
[2022-09-08] MEDS: ACETAMINOPHEN TAB 325 MG TAB PO PRN (21:17)
[2022-09-08] MEDS: SODIUM CHLORIDE 0.9% 1,000 ML IV SCH (21:17)
[2022-09-08] MEDS: LATANOPROST 0.005% OPHTH DROPS 2.5 ML BTL BOTH EYES SCH (21:20)
[2022-09-09] MEDS: HEPARIN SODIUM,PORCINE/PF 5,000 UNIT/0.5 ML SYRINGE SQ SCH ×3 (00:41→17:11)
[2022-09-09] MEDS: SODIUM CHLORIDE 0.9% 1,000 ML IV SCH ×2 (05:40→09:49)
[2022-09-09 06:03] LABS: Glucose,Whole Blood 150 mg/dL (70-110)
[2022-09-09] MEDS: INSULIN ASPART (NovoLOG) 100 UNIT/ML VIAL SQ SCH ×3 (06:35→17:11)
--- NOTE | 2022-09-09 06:44 | P.PN ---
Subjective Progress Note Date: 09/08/22 Patient is a 67-year-old female with a past medical history of hypertension, hyperlipidemia, hypothyroidism, glaucoma, history of DVT LTR with complaints of nausea vomiting and diarrhea for the past 2 weeks. Patient has had decreased urine output and painful urination. Denies any fever. Admits having chills at home. Denies any flank pain. No hematuria. No complaints of headache or dizziness. Patient was complaining of chest discomfort on admission. EKG showed sinus rhythm with first-degree AV block. Laboratory showed WBC 17.3 hemoglobin 13.6 and platelets 308 Sodium 137 potassium 4.1 chloride 96 bicarb is 27 BUN 66 and creatinine 2.78 and blood sugar is 273 09/08/2022 Patient is seen and evaluated in follow-up today being continued on antibiotics and awaiting cultures. Patient also being seen and evaluated by cardiology as there was reported intermittent chest pain. ACS ruled out and 2-D echo within normal limits recommending outpatient follow-up in the office. Patient reports significant weakness and would recommend physical therapy evaluation. Patient is also requesting a hospital bed for home as she has chronic pain and difficulty lying flat requiring frequent position changes to manage pain. Patient is afebrile with no reported chest pain or shortness of breath curr ently. Patient also reported to have a deep tissue injury on coccyx region present on admission and patient reports it has been there for approximately one month. Patient reports she is not getting up and walking much and is mostly wheelchair-bound at home. Will discuss with case management about discharge planning needs. Review of systems: Constitutional: No reports of fatigue, fever, or chills Cardiovascular: No reports of chest pain or palpitations Respiratory: No reports of shortness of breath or cough GI: No reports of nausea, vomiting, or diarrhea : No reports of dysuria or retention Neurovascular: reports of generalized weakness All medications have been reviewed PHYSICAL EXAMINATION: Patient is sitting up in the chair, no acute distress, awake alert and oriented.. HEENT: Normocephalic. Neck is supple. Pupils reactive. Nostrils clear. Oral cavity is moist. Neck reveals no JVD, carotid bruits, or thyromegaly. CHEST EXAMINATION: Trachea is central. Symmetrical expansion. Lung salazar clear to auscultation and percussion. CARDIAC: Normal S1, S2 with no gallops. No murmurs ABDOMEN: Soft. Bowel sounds present. Nontender. No organomegaly. No abdominal bruits. Extremities: reveal no edema. No clubbing or cyanosis Neurologically awake, alert, oriented x3 with well-coordinated movements. No focal deficits noted Skin: No rash or skin lesions. Psychiatric: Cooperative. Non-suicidal Musculoskeletal: No joint swelling or deformity. Normal range of motion. Assessment: Acute urinary tract infection present on admission Sepsis secondary above Acute kidney injury. Creatinine level 2.78 admission. Baseline 1.5 Diabetes type 2. Uncontrolled with hyperglycemia. Follow-up A1c level. Atypical chest pain. Ruled out ACS. Nausea vomiting and diarrhea for the past 2 weeks. Improved Hypertension Hyperlipidemia DVT prophylaxis heparin subcu GI prophylaxis Full code Plan: Patient will be continued on IV hydration with normal saline at 75 cc/h. Continue with antibiotics ceftriaxone. Cultures remain negative Recommend follow-up labs in the morning to monitor electrolytes and kidney functions Cardiology has evaluated the patient and 2-D echo was done within normal limits in ACS ruled out recommending outpatient follow-up in the clinic Awaiting PT/OT therapy evaluation. Case management consulted as well patient is requesting a hospital bed for her home Recommend monitoring Accu-Cheks before meals and at bedtime and will continue with current regimen The impression and plan of care has been dictated by Alesia Mathew, Nurse Practitioner as directed. Dr. Alyssa MD I have performed a history and examination and MDM of this patient, discussed the same with the dictator, and agree with the dictator's assessment and plan as written ,documented as a scribe. Based on total visit time, I have performed more than 50% of the visit. Objective - Vital Signs Vital signs: Vital Signs Temp 98.4 F 09/08/22 07:31 Pulse 73 09/08/22 08:37 Resp 17 09/08/22 08:37 BP 117/75 09/08/22 07:31 Pulse Ox 96 09/08/22 07:31 FiO2 Intake & Output 09/07/22 09/08/22 09/08/22 18:59 06:59 18:59 Intake Total 1080 Balance 1080 Weight 68.039 kg Intake: Oral 1080 Other: Voiding Method Toilet Toilet # Voids 3 2 1 - Labs CBC & Chem 7: 09/08/22 05:48 09/08/22 05:48 Labs: Abnormal Lab Results - Last 24 Hours (Table) 09/08/22 Range/Units 05:27 POC Glucose (mg/dL) 180 H (70-110) mg/dL Microbiology - Last 24 Hours (Table) 09/06/22 17:40 Blood Culture - Preliminary Blood 09/06/22 17:25 Blood Culture - Preliminary Blood
[2022-09-09] MEDS: ASPIRIN 81 MG PO SCH (09:23)
[2022-09-09] MEDS: CHLORTHALIDONE 25 MG TAB PO SCH (09:23)
[2022-09-09] MEDS: ATORVASTATIN 20 MG TAB PO SCH (09:23)
[2022-09-09] MEDS: EZETIMIBE 10 MG TAB PO SCH (09:23)
[2022-09-09] MEDS: FAMOTIDINE 20 MG TAB PO SCH (09:23)
[2022-09-09] MEDS: LOSARTAN 50 MG TAB PO SCH (09:23)
[2022-09-09 11:06] LABS: Glucose,Whole Blood 166 mg/dL (70-110)
[2022-09-09 13:15] VITALS: BP 128/62; PULSE 80; RESP 17; TEMP 98.2
[2022-09-09 13:24] LABS: Basophils # (A) 0.11 X 10*3/uL (0.00-0.10); Basophils % (A) 1.2 %; Eosinophils # (A) 0.27 X 10*3/uL (0.04-0.35); HCT 37.6 % (37.2-46.3); HGB 12.2 d/dL (12.0-15.0); Lymphocytes # (A) 2.31 X 10*3/uL (0.90-5.00); Lymphocytes % (A) 25.5 %; MCH 30.8 pg (27.0-32.0); MCHC 32.4 d/dL (32.0-37.0); MCV 94.9 FL (80.0-97.0); Mean Platelet Volume 11.4 FL (9.5-12.2); Monocytes # (A) 0.58 X 10*3/uL (0.20-1.00); Monocytes % (A) 6.4 %; NRBC Per 100 WBC 0 X 10*3/uL (0.00-0.01); Neutrophils # (A) 5.76 X 10*3/uL (1.80-7.70); Neutrophils % (A) 63.6 %; Platelet Count 239 X 10*3/uL (140-440); RBC 3.96 X 10*6/uL (4.10-5.20); RDW 12.9 % (11.5-14.5); WBC 9.06 X 10*3/uL (4.50-10.00)
[2022-09-09 13:40] LABS: BUN/Creat Ratio 17.07 Ratio (12.00-20.00); Blood Urea Nitrogen 25.6 mg/dL (9.0-27.0); Calcium 9.2 mg/dL (8.7-10.3); Carbon Dioxide 22.1 mmol/L (21.6-31.8); Chloride 106 mmol/L (96-109); Glucose 159 mg/dL (70-110); Potassium 3.8 mmol/L (3.5-5.5); Sodium 142 mmol/L (135-145)
[2022-09-09 16:08] LABS: Glucose,Whole Blood 185 mg/dL (70-110)
--- NOTE | 2022-09-10 13:10 | P.DS ---
Providers Date of admission: 09/08/22 08:26 Expected date of discharge: 09/09/22 Attending physician: Carmen Hearn Primary care physician: David Ruiz Hospital Course: Final diagnosis Acute urinary tract infection present on admission Sepsis secondary above Acute kidney injury. Creatinine level 2.78 admission. Baseline 1.5 Diabetes type 2. Uncontrolled with hyperglycemia. Follow-up A1c level. Atypical chest pain. Ruled out ACS. Deep tissue injury coccyx region, present on admission Nausea vomiting and diarrhea for the past 2 weeks. Improved Hypertension Hyperlipidemia DVT prophylaxis heparin subcu GI prophylaxis Full code Discharge disposition Patient is being discharged in a stable condition with guarded prognosis to home with home care. Patient will follow-up with Dr. Ruiz in the outpatient setting upon discharge. Patient is to continue with current medications as mentioned below and outpatient follow-up with consultations as scheduled. Total time taken is greater than 35 minutes. Hospital course This is a 67-year-old female who was recently admitted with acute urinary tract infection, present on admission with sepsis being closely monitored. Patient also with acute kidney injury maintained on gentle hydration showing improvements recommending follow-up labs in the next few days. Patient had chest pain was evaluated by cardiology ruled out ACS recommending follow-up in the outpatient setting as well. Patient having improvement in diarrhea and no further nausea or vomiting. Patient reports to feeling improved and will be going home with home care. Please refer to other consultation notes for further HPI. Currently no reports of chest pain, shortness of breath, or palpitations. Patient is afebrile. No reports of nausea or vomiting and patient is tolerating diet. Patient will be discharged home today. Guarded prognosis. Physical exam: Gen: This is a 67-year-old female who is awake, alert and oriented 3, well- developed, well-nourished HEENT: Head is atraumatic, normocephalic. Pupils equal, round. Sclerae is anicteric. NECK: Supple. No JVD. No lymphadenopathy. No thyromegaly. LUNGS: Clear to auscultation. No wheezes or rhonchi. No intercostal retractions. HEART: Regular rate and rhythm. No murmur. ABDOMEN: Soft. Obese. Bowel sounds are present. No masses. No tenderness. EXTREMITIES: No pedal edema. No calf tenderness. NEUROLOGICAL: Patient is awake, alert and oriented x3. Cranial nerves 2 through 12 are grossly intact. Please refer to medication reconciliation sheet for a list of medications. The impression and plan of care has been dictated by Alesia Mathew, Nurse Practitioner as directed. Dr. Alyssa MD I have performed a history and examination and MDM of this patient, discussed the same with the dictator, and agree with the dictator's assessment and plan as written ,documented as a scribe. Based on total visit time, I have performed more than 50% of the visit. Patient Condition at Discharge: Stable Plan - Discharge Summary Discharge Rx Participant: No New Discharge Prescriptions: New cefUROXime axetiL [Ceftin] 500 mg PO BID 4 Days #8 tab Continue Latanoprost Ophth [Xalatan 0.005%] 1 drop BOTH EYES HS Chlorthalidone [Hygroton] 25 mg PO DAILY Losartan [Cozaar] 50 mg PO DAILY allopurinoL [Zyloprim] 100 mg PO DAILY Levothyroxine Sodium [Synthroid] 88 mcg PO DAILY Ezetimibe [Zetia] 10 mg PO DAILY Aspirin EC [Ecotrin Low Dose] 81 mg PO DAILY Simvastatin [Zocor] 40 mg PO DAILY Discharge Medication List Latanoprost Ophth [Xalatan 0.005%] 1 drop BOTH EYES HS 10/11/14 [History] Chlorthalidone [Hygroton] 25 mg PO DAILY 11/05/16 [History] Losartan [Cozaar] 50 mg PO DAILY 11/05/16 [History] Aspirin EC [Ecotrin Low Dose] 81 mg PO DAILY 09/06/22 [History] Ezetimibe [Zetia] 10 mg PO DAILY 09/06/22 [History] Levothyroxine Sodium [Synthroid] 88 mcg PO DAILY 09/06/22 [History] Simvastatin [Zocor] 40 mg PO DAILY 09/06/22 [History] allopurinoL [Zyloprim] 100 mg PO DAILY 09/06/22 [History] cefUROXime axetiL [Ceftin] 500 mg PO BID 4 Days #8 tab 09/09/22 [Rx] Follow up Appointment(s)/Referral(s): Chuck Espana MD [Medical Doctor] - 2 Weeks (Office will call you with your appointment) [facility] [NON-STAFF] - As Needed [facility] [NON-STAFF] - As Needed (Hospital bed) David Ruiz MD [Primary Care Provider] - 09/16/22 3:45 pm ([place] location) Ambulatory/Diagnostic Orders: Basic Metabolic Panel [LAB.AMB] Time Frame: 3 Days, Location: None Selected Patient Instructions/Handouts: Acute Kidney Injury (DC), Urinary Tract Infection in Women (DC), Leukocytosis (DC) Activity/Diet/Wound Care/Special Instructions: Either of these may be able to assist with chair lift-[facility]: #[phone] [facility]: #[phone] Activity Limited until follow-up Follow-up with primary care provider on discharge Follow-up with cardiology outpatient Continue taking medications as prescribed Repeat labs in the next 2-3 days Discharge Disposition: HOME WITH HOME HEALTH SERVICES
== END 2022-09-09 17:59 | disposition home health service (06) | DRG 872 ==
LOC: EC 12:53 → 4SSUR 16:57 → OBSVTOIN 09-08 08:26
PROVIDERS: ADMIT Hospitalist; ATTEND Hospitalist
DX: A41.9 Sepsis, unspecified organism (principal); N17.9 Acute kidney failure, unspecified; N39.0 Urinary tract infection, site not specified; E11.65 Type 2 diabetes mellitus with hyperglycemia; I10 Essential (primary) hypertension; E03.9 Hypothyroidism, unspecified; G89.29 Other chronic pain; E78.5 Hyperlipidemia, unspecified; M54.9 Dorsalgia, unspecified; I44.0 Atrioventricular block, first degree; R07.89 Other chest pain; Z20.822 Contact with and (suspected) exposure to COVID-19; Z86.718 Personal history of other venous thrombosis and embolism; Z79.899 Other long term (current) drug therapy; Z79.890 Hormone replacement therapy; Z79.82 Long term (current) use of aspirin; Z91.040 Latex allergy status; Z88.5 Allergy status to narcotic agent; Z28.310 Unvaccinated for COVID-19
CPT/HCPCS: 36415; 51798; 80048; 80053; 81001; 83036; 84439; 84443; 84484; 85025; 87040; 87636; 93306; 96361; 96365; 96366; 96375; 99285

== ENCOUNTER 2022-11-20 11:51 | Observation (INO) | payer MEDICARE, OTHER ==
[2022-11-20 12:02] LABS: Glucose,Whole Blood 556 mg/dL (70-110)
[2022-11-20 12:26] LABS: Basophils % (A) 0 %; Eosinophils # (A) 0.1 k/uL (0-0.7); Eosinophils % (A) 1 %; HCT 44.3 % (34.0-46.0); HGB 14.5 gm/dL (11.4-16.0); Lymphocytes # (A) 0.5 k/uL (1.0-4.8); Lymphocytes % (A) 3 %; MCH 32.5 pg (25.0-35.0); MCHC 32.8 g/dL (31.0-37.0); MCV 99.2 fL (80.0-100.0); Mean Platelet Volume 9.1; Monocytes # (A) 0.3 k/uL (0-1.0); Monocytes % (A) 2 %; Neutrophils # (A) 15.8 k/uL (1.3-7.7); Neutrophils % (A) 94 %; Platelet Count 234 k/uL (150-450); RBC 4.47 m/uL (3.80-5.40); RDW 12.6 % (11.5-15.5); WBC 16.9 k/uL (3.8-10.6)
[2022-11-20 12:51] LABS: AST 25 U/L (14-36); African American GFR (CKD) 53 (>60 ml/min/1.73 sqM); Alkaline Phosphatase 80 U/L (38-126); Anion Gap 19 mmol/L; Blood Urea Nitrogen 49 mg/dL (7-17); Calcium 9.8 mg/dL (8.4-10.2); Carbon Dioxide 18 mmol/L (22-30); Chloride 93 mmol/L (98-107); Non-African American GFR(CKD) 46 (>60 ml/min/1.73 sqM); Potassium 4.3 mmol/L (3.5-5.1); Sodium 130 mmol/L (137-145); Total Bilirubin 0.8 mg/dL (0.2-1.3)
[2022-11-20 12:53] LABS: Prothrombin Time 10.2 sec (9.0-12.0)
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
[2022-11-20 13:13] LABS: ALT 40 U/L (4-34)
[2022-11-20 13:19] LABS: Glucose 604 mg/dL (74-99)
--- NOTE | 2022-11-20 13:21 | XR ---
EXAMINATION TYPE: XR chest 2V DATE OF EXAM: 11/20/2022 COMPARISON: 01/15/2015 HISTORY: Cough TECHNIQUE: Frontal and lateral views of the chest are obtained. FINDINGS: There is no focal air space opacity, pleural effusion, or pneumothorax seen. The cardiac silhouette size is within normal limits. The osseous structures are intact. IMPRESSION: No acute cardiopulmonary process.
[2022-11-20] MEDS ORDERED: SODIUM CHLORIDE 0.9% 1,000 ML IV ONE (14:01)
[2022-11-20] MEDS ORDERED: INSULIN REGULAR 100 UNIT/ML VIAL (IV) IV ONE (14:02)
[2022-11-20 14:29] LABS: Appearance,Urine Clear (Clear); Bilirubin,Urine Negative (Negative); Blood,Urine Negative (Negative); Color,Urine Colorless; Glucose,Urine (UA) 4+ (Negative); Ketones,Urine Negative (Negative); Leukocyte Esterase,Urine Negative (Negative); Nitrite,Urine Negative (Negative); Protein,Urine Negative (Negative); Specific Gravity,Urine 1.025 (1.001-1.035); Urobilinogen,Urine <2.0 mg/dL (<2.0)
[2022-11-20] MEDS ORDERED: SODIUM CHLORIDE 0.9% 500 ML 500 ML IV ONE (14:50)
[2022-11-20] MEDS ORDERED: ACETAMINOPHEN TAB 325 MG TAB PO PRN (14:59)
[2022-11-20] MEDS ORDERED: NALOXONE 0.4 MG/ML 1 ML VIAL IV PRN (14:59)
[2022-11-20] MEDS ORDERED: DEXTROSE 50% SYRINGE 50 ML IVP PRN ×2 (15:00)
[2022-11-20 15:09] LABS: African American GFR (CKD) 69 (>60 ml/min/1.73 sqM); Anion Gap 14 mmol/L; Blood Urea Nitrogen 50 mg/dL (7-17); Calcium 9.5 mg/dL (8.4-10.2); Carbon Dioxide 21 mmol/L (22-30); Chloride 96 mmol/L (98-107); Glucose 382 mg/dL (74-99); Non-African American GFR(CKD) 59 (>60 ml/min/1.73 sqM); Sodium 131 mmol/L (137-145)
[2022-11-20] MEDS: SODIUM CHLORIDE 0.9% 1,000 ML IV SCH (15:29)
[2022-11-20 18:00] LABS: Glucose,Whole Blood 284 mg/dL (70-110)
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
[2022-11-20] MEDS: INSULIN ASPART (NovoLOG) 100 UNIT/ML VIAL SQ SCH ×2 (18:12→21:19)
[2022-11-20] MEDS: HEPARIN SODIUM,PORCINE 5,000 UNIT/ML 1 ML VIAL SQ SCH (19:19)
[2022-11-20] MEDS ORDERED: INSULIN ASPART (NovoLOG) 100 UNIT/ML VIAL SQ SCH (21:00)
[2022-11-20 21:11] LABS: Glucose,Whole Blood 282 mg/dL (70-110)
[2022-11-20] MEDS: LATANOPROST 0.005% OPHTH DROPS 2.5 ML BTL BOTH EYES SCH (21:19)
[2022-11-20] MEDS: prednisoLONE ACETATE 1% OPHTH DROPS 5 ML BTL BOTH EYES SCH (21:19)
[2022-11-21] MEDS: HEPARIN SODIUM,PORCINE 5,000 UNIT/ML 1 ML VIAL SQ SCH ×3 (00:07→18:43)
[2022-11-21] MEDS: SODIUM CHLORIDE 0.9% 1,000 ML IV SCH ×3 (00:08→20:43)
[2022-11-21 06:12] LABS: Glucose,Whole Blood 186 mg/dL (70-110)
[2022-11-21] MEDS: INSULIN ASPART (NovoLOG) 100 UNIT/ML VIAL SQ SCH ×4 (06:38→21:36)
[2022-11-21] MEDS: GLIMEPIRIDE 1 MG TAB PO SCH ×2 (06:39→18:42)
[2022-11-21] MEDS: prednisoLONE ACETATE 1% OPHTH DROPS 5 ML BTL BOTH EYES SCH ×2 (08:21→20:42)
[2022-11-21] MEDS: ATORVASTATIN 20 MG TAB PO SCH (08:21)
[2022-11-21] MEDS: CHLORTHALIDONE 25 MG TAB PO SCH (08:21)
[2022-11-21] MEDS: LOSARTAN 50 MG TAB PO SCH (08:21)
[2022-11-21] MEDS: ASPIRIN 81 MG PO SCH (08:21)
[2022-11-21] MEDS: LEVOTHYROXINE 88 MCG TAB PO SCH (08:21)
[2022-11-21] MEDS: EZETIMIBE 10 MG TAB PO SCH (08:21)
[2022-11-21] MEDS: allopurinoL 100 MG TAB PO SCH (08:21)
[2022-11-21 09:49] LABS: Basophils # (A) 0.03 X 10*3/uL (0.00-0.10); Basophils % (A) 0.2 %; Eosinophils % (A) 0.7 %; HCT 39.4 % (37.2-46.3); HGB 13.2 d/dL (12.0-15.0); Lymphocytes # (A) 3.95 X 10*3/uL (0.90-5.00); Lymphocytes % (A) 27.4 %; MCH 31.7 pg (27.0-32.0); MCHC 33.5 d/dL (32.0-37.0); MCV 94.7 FL (80.0-97.0); Mean Platelet Volume 11.2 FL (9.5-12.2); Monocytes # (A) 0.91 X 10*3/uL (0.20-1.00); Monocytes % (A) 6.3 %; NRBC Per 100 WBC 0 X 10*3/uL (0.00-0.01); Neutrophils # (A) 9.32 X 10*3/uL (1.80-7.70); Neutrophils % (A) 64.8 %; Platelet Count 210 X 10*3/uL (140-440); RBC 4.16 X 10*6/uL (4.10-5.20); RDW 12.4 % (11.5-14.5)
[2022-11-21 11:33] LABS: Glucose,Whole Blood 301 mg/dL (70-110)
[2022-11-21 12:02] LABS: ALT 16 U/L (8-44); AST 10 U/L (13-35); Albumin 3.5 d/dL (3.8-4.9); Albumin/Globulin Ratio 1.59 Ratio (1.60-3.17); Alkaline Phosphatase 58 U/L (41-126); Bilirubin, Conjugated <0.20 mg/dL (0.20-0.40); Bilirubin,Unconjugated >0.20 mg/dL (0.20-1.00); Blood Urea Nitrogen 32.3 mg/dL (9.0-27.0); Calcium 9.2 mg/dL (8.7-10.3); Carbon Dioxide 24.5 mmol/L (21.6-31.8); Chloride 103 mmol/L (96-109); Globulin 2.2 d/dL (1.6-3.3); Glucose 185 mg/dL (70-110); Potassium 3.4 mmol/L (3.5-5.5); Sodium 137 mmol/L (135-145); Total Bilirubin 0.4 mg/dL (0.3-1.2); Total Protein 5.7 d/dL (6.2-8.2)
[2022-11-21] MEDS: metFORMIN 850 MG TAB PO SCH ×2 (13:26→18:42)
--- NOTE | 2022-11-21 13:34 | P.PN ---
Subjective Progress Note Date: 11/21/22 65-year-old female, history of hypertension, hyperlipidemia, hypothyroidism, gout, presents emergency Department chief complaint denies weakness, lightheadedness, generalized not feeling well. Patient states that she was diagnosed diabetic earlier this year. She states she was recently given glucometer and she is on Amaryl. Patient states her blood sugars very elevated. She has urinary frequency. Patient denies any chest pain. Patient's family is present at bedside and reporting patient is very noncompliant to taking medication and monitoring blood glucose levels and diet Blood work completed in ED reveals WBC of 16.9, hemoglobin of 14.5, platelet count of 234, sodium 1:30, potassium 4.3, BUN/creatinine of 49/1.2 and blood glucose of 604 Patient was given IV fluids and IV insulin in ED and is admitted for further IV fluid hydration and blood glucose monitoring and improved blood glucose control -- Patient is seen and evaluated in room at bedside; reports she still feels weak and shaky; blood glucose is improving and is in 300s with home dose of Amaryl and insulin sliding scale; we will continue current regimen; add metformin 850 mg by mouth twice a day; continue to monitor Accu-Cheks; continue with IV fluids -- White blood count remains elevated but slowly trending down; patient remains afebrile; chest x-ray and UA done in ED are unremarkable; leukocytosis is likely reactive; we will continue to monitor Objective - Vital Signs Vital signs: Vital Signs Temp 98.4 F 11/21/22 07:00 Pulse 68 11/21/22 07:00 Resp 18 11/21/22 07:00 BP 132/71 11/21/22 07:00 Pulse Ox 97 11/21/22 07:00 FiO2 Intake & Output 11/20/22 11/21/22 11/21/22 18:59 06:59 18:59 Intake Total 240 Balance 240 Weight 92.079 kg Intake: Oral 240 Other: Voiding Method Toilet # Voids 1 2 - Exam PHYSICAL EXAMINATION: GENERAL: The patient is alert and oriented x3, not in any acute distress. Well developed, well nourished. HEENT: Pupils are round and equally reacting to light. EOMI. No scleral icterus. No conjunctival pallor. Normocephalic, atraumatic. No pharyngeal erythema. No thyromegaly. CARDIOVASCULAR: S1 and S2 present. No murmurs, rubs, or gallops. PULMONARY: Chest is clear to auscultation, no wheezing or crackles. ABDOMEN: Soft, nontender, nondistended, normoactive bowel sounds. No palpable o rganomegaly. MUSCULOSKELETAL: No joint swelling or deformity. EXTREMITIES: No cyanosis, clubbing, or pedal edema. NEUROLOGICAL: Gross neurological examination did not reveal any focal deficits. SKIN: No rashes. - Labs CBC & Chem 7: 11/21/22 06:01 11/21/22 06:01 Labs: Abnormal Lab Results - Last 24 Hours (Table) 11/20/22 11/20/22 11/20/22 Range/Units 11:21 11:21 13:08 WBC 16.9 H (3.8-10.6) k/uL Neutrophils # 15.8 H (1.3-7.7) k/uL Lymphocytes # 0.5 L (1.0-4.8) k/uL Sodium 130 L (137-145) mmol/L Potassium (3.5-5.5) mmol/L Chloride 93 L (98-107) mmol/L Carbon Dioxide 18 L (22-30) mmol/L BUN 49 H (7-17) mg/dL Creatinine 1.21 H (0.52-1.04) mg/dL BUN/Creatinine Ratio (12.00-20.00) Ratio Glucose 604 H* (74-99) mg/dL POC Glucose (mg/dL) (70-110) mg/dL Hemoglobin A1c (<=6.0) % Plasma Lactic Acid Donnie 3.4 H* (0.7-2.0) mmol/L AST (13-35) U/L ALT 40 H (4-34) U/L Total Protein (6.2-8.2) d/dL Albumin (3.8-4.9) d/dL Albumin/Globulin Ratio (1.60-3.17) Ratio Urine Glucose (UA) (Negative) 11/20/22 11/20/22 11/20/22 Range/Units 13:08 13:30 17:46 WBC (3.8-10.6) k/uL Neutrophils # (1.3-7.7) k/uL Lymphocytes # (1.0-4.8) k/uL Sodium 131 L (137-145) mmol/L Potassium (3.5-5.5) mmol/L Chloride 96 L (98-107) mmol/L Carbon Dioxide 21 L (22-30) mmol/L BUN 50 H (7-17) mg/dL Creatinine (0.52-1.04) mg/dL BUN/Creatinine Ratio (12.00-20.00) Ratio Glucose 382 H (74-99) mg/dL POC Glucose (mg/dL) 284 H (70-110) mg/dL Hemoglobin A1c (<=6.0) % Plasma Lactic Acid Donnie (0.7-2.0) mmol/L AST (13-35) U/L ALT (4-34) U/L Total Protein (6.2-8.2) d/dL Albumin (3.8-4.9) d/dL Albumin/Globulin Ratio (1.60-3.17) Ratio Urine Glucose (UA) 4+ H (Negative) 11/20/22 11/21/22 11/21/22 Range/Units 21:10 06:01 06:01 WBC 14.40 H (3.8-10.6) k/uL Neutrophils # 9.32 H (1.3-7.7) k/uL Lymphocytes # (1.0-4.8) k/uL Sodium (137-145) mmol/L Potassium (3.5-5.5) mmol/L Chloride (98-107) mmol/L Carbon Dioxide (22-30) mmol/L BUN (7-17) mg/dL Creatinine (0.52-1.04) mg/dL BUN/Creatinine Ratio (12.00-20.00) Ratio Glucose (74-99) mg/dL POC Glucose (mg/dL) 282 H (70-110) mg/dL Hemoglobin A1c 8.8 H (<=6.0) % Plasma Lactic Acid Donnie (0.7-2.0) mmol/L AST (13-35) U/L ALT (4-34) U/L Total Protein (6.2-8.2) d/dL Albumin (3.8-4.9) d/dL Albumin/Globulin Ratio (1.60-3.17) Ratio Urine Glucose (UA) (Negative) 11/21/22 11/21/22 11/21/22 Range/Units 06:01 06:11 11:26 WBC (3.8-10.6) k/uL Neutrophils # (1.3-7.7) k/uL Lymphocytes # (1.0-4.8) k/uL Sodium (137-145) mmol/L Potassium 3.4 L (3.5-5.5) mmol/L Chloride (98-107) mmol/L Carbon Dioxide (22-30) mmol/L BUN 32.3 H (7-17) mg/dL Creatinine (0.52-1.04) mg/dL BUN/Creatinine Ratio 32.30 H (12.00-20.00) Ratio Glucose 185 H (74-99) mg/dL POC Glucose (mg/dL) 186 H 301 H (70-110) mg/dL Hemoglobin A1c (<=6.0) % Plasma Lactic Acid Donnie (0.7-2.0) mmol/L AST 10 L (13-35) U/L ALT (4-34) U/L Total Protein 5.7 L (6.2-8.2) d/dL Albumin 3.5 L (3.8-4.9) d/dL Albumin/Globulin Ratio 1.59 L (1.60-3.17) Ratio Urine Glucose (UA) (Negative) Assessment and Plan Assessment: 1. Hyperglycemia with acidosis - Patient received 1 L normal saline bolus in ED along with 10 units of Humulin R IV 1; repeat blood glucose has trended down to 382 - We will continue with IV fluid hydration with normal saline at a rate of 100 mL/h; monitor Accu-Cheks every before meals and at bedtime with insulin sliding scale; monitor basic metabolic panel every 4 hours - We will plan to start patient on IV insulin infusion per protocol if starts becoming acidotic 2. Acute renal injury; likely related to hyperglycemia and dehydration - Patient received IV fluid bolus with normal saline in ED; continue with normal saline at 10 mL an hour - We will monitor strict LARRY's, daily weights, renal function and electrolytes; avoid nephrotoxins and hypotension 3. Hyponatremia; likely pseudohyponatremia related to hypoglycemia - Continue with normal saline infusion at a rate of 100 mL an hour; monitor electrolytes 4. Lactic acidosis; lactic acid elevated at 3.4; we will continue with IV fluids and monitor lactic acid levels periodically 5. Transaminitis; slight elevation in ALT at 40; possibly related to statin use; we will continue with the statins and monitor liver enzymes closely and nunu e further recommendations accordingly 6. Hypertension; patient takes chlorthalidone 25 mg daily, losartan 50 mg daily 7. Hyperlipidemia; Zetia 10 mg daily, Zocor 40 mg daily 8. Hypothyroidism; levothyroxin 88 MCG daily DVT prophylaxis; SCDs/subcu heparin CODE STATUS; full code
[2022-11-21 17:42] LABS: Glucose,Whole Blood 170 mg/dL (70-110)
[2022-11-21] MEDS: LATANOPROST 0.005% OPHTH DROPS 2.5 ML BTL BOTH EYES SCH (20:42)
[2022-11-21 21:24] LABS: Glucose,Whole Blood 185 mg/dL (70-110)
[2022-11-22] MEDS: HEPARIN SODIUM,PORCINE 5,000 UNIT/ML 1 ML VIAL SQ SCH ×2 (00:05→08:54)
[2022-11-22 06:01] LABS: Glucose,Whole Blood 126 mg/dL (70-110)
[2022-11-22] MEDS: INSULIN ASPART (NovoLOG) 100 UNIT/ML VIAL SQ SCH ×2 (06:01→12:46)
[2022-11-22] MEDS: SODIUM CHLORIDE 0.9% 1,000 ML IV SCH (06:16)
[2022-11-22 07:25] VITALS: BP 112/66; RESP 18; TEMP 98.3
[2022-11-22] MEDS: LEVOTHYROXINE 88 MCG TAB PO SCH (08:54)
[2022-11-22] MEDS: ASPIRIN 81 MG PO SCH (08:54)
[2022-11-22] MEDS: ATORVASTATIN 20 MG TAB PO SCH (08:54)
[2022-11-22] MEDS: EZETIMIBE 10 MG TAB PO SCH (08:54)
[2022-11-22] MEDS: LOSARTAN 50 MG TAB PO SCH (08:54)
[2022-11-22] MEDS: allopurinoL 100 MG TAB PO SCH (08:54)
[2022-11-22] MEDS: CHLORTHALIDONE 25 MG TAB PO SCH (09:31)
[2022-11-22] MEDS: GLIMEPIRIDE 1 MG TAB PO SCH (09:31)
[2022-11-22] MEDS: metFORMIN 850 MG TAB PO SCH (09:31)
[2022-11-22] MEDS: prednisoLONE ACETATE 1% OPHTH DROPS 5 ML BTL BOTH EYES SCH (09:32)
[2022-11-22 11:47] LABS: Glucose,Whole Blood 180 mg/dL (70-110)
[2022-11-22 11:59] LABS: African American GFR (CKD) 66 (>60 ml/min/1.73 sqM); Anion Gap 11 mmol/L; Blood Urea Nitrogen 32 mg/dL (7-17); Calcium 9.3 mg/dL (8.4-10.2); Carbon Dioxide 19 mmol/L (22-30); Chloride 107 mmol/L (98-107); Glucose 123 mg/dL (74-99); Non-African American GFR(CKD) 57 (>60 ml/min/1.73 sqM); Potassium 4.4 mmol/L (3.5-5.1); Sodium 137 mmol/L (137-145)
[2022-11-22 14:19] VITALS: PULSE 80
[2022-11-22 14:30] VITALS: BMI 38.3
--- NOTE | 2022-11-24 13:47 | P.DS ---
Providers Date of admission: 11/20/22 14:59 Attending physician: Carmen Hearn Primary care physician: David Ruiz [facility] Course: Final Diagnosis Hyperglycemia with acidosis Diabetes Mellitus type 2 uncontrolled hemoglobin A1C 8.8. Acute renal injury; likely related to hyperglycemia and dehydration Hyponatremia; likely pseudohyponatremia related to hyperglycemia Lactic acidosis from the acute metabolic acidosis, resolved Transaminitis mild and resolved. Hypertension Hyperlipidemia Hypothyroidism Discharge Disposition Patient is stable for discharge. Recommending to continue check blood glucose ACHS and keep log for follow up with PCP Dr. Ruiz in addition to the amaryl patient was started on metformin BID for glycemic control. Patient is also given information on diabetic education outpatient. Repeat labs in 2 to 3 days. Follow up with PCP Dr Ruiz [facility] Course 65-year-old female, history of hypertension, hyperlipidemia, hypothyroidism, gout, presents emergency Department chief complaint denies weakness, lightheadedness, generalized not feeling well. Patient states that she was diagnosed diabetic earlier this year. She states she was recently given glucometer and she is on Amaryl. Patient states her blood sugars very elevated. She has urinary frequency. Patient denies any chest pain. Patient's family is present at bedside and reporting patient is very noncompliant to taking medication and monitoring blood glucose levels and diet. Blood work completed in ED reveals WBC of 16.9, hemoglobin of 14.5, platelet count of 234, sodium 1:30, potassium 4.3, BUN/creatinine of 49/1.2 and blood glucose of 604 Patient was given IV fluids and IV insulin in ED and is admitted for further IV fluid hydration and blood glucose monitoring and improved blood glucose control. Chest x-ray and UA done in ED are unremarkable; leukocytosis is likely reactive. She was hydrated appropriately her sodium has now normalized to 137 initially her blood glucose is better controlled at 180 hemoglobin A1c was found to be 8.8. Her acetone was negative her urinalysis shows 4+ glucose but negative for ketones. White count is improving down to 14.4. Patient was discharged home on same home medication regimen with the addition of metformin 850 mg twice a day. Patient recommended to follow-up with diabetic outpatient education is given information this is done through the [facility]. Additionally patient is given information a meal planning with a diabetic exchange and community resources. She is recommended to repeat her labs in 2-3 days and also to follow-up with her PCP Dr. Ruiz to 2 days. Patient will be discharged home. Please see medication reconciliation for list of current medication. Thank you for allowing us to participate in the care of this patient. The impression and plan of care has been dictated by Alysha Lawson, Nurse Practitioner as directed. Dr. Shara MD I have performed a history and physical examination and medical decision making of this patient, discussed the same with the dictator, and agree with the dictators assessment and plan as written, documented as a scribe. Based on total visit time, I have performed more than 50% of this visit. Patient Condition at Discharge: Stable Plan - Discharge Summary Discharge Rx Participant: No New Discharge Prescriptions: New metFORMIN HCL [Glucophage] 850 mg PO BID-W/MEALS #30 tab Continue Latanoprost Ophth [Xalatan 0.005%] 1 drop BOTH EYES HS Chlorthalidone [Hygroton] 25 mg PO DAILY Losartan [Cozaar] 50 mg PO DAILY allopurinoL [Zyloprim] 100 mg PO DAILY Levothyroxine Sodium [Synthroid] 88 mcg PO DAILY Ezetimibe [Zetia] 10 mg PO DAILY Aspirin EC [Ecotrin Low Dose] 81 mg PO DAILY Glimepiride [Amaryl] 1 mg PO BID Loteprednol Etabonate [Lotemax] 1 drop BOTH EYES BID Simvastatin [Zocor] 40 mg PO DAILY cefUROXime axetiL [Ceftin] 500 mg PO BID 4 Days #8 tab predniSONE [Deltasone] 20 mg PO DAILY Discharge Medication List Latanoprost Ophth [Xalatan 0.005%] 1 drop BOTH EYES HS 10/11/14 [History] Chlorthalidone [Hygroton] 25 mg PO DAILY 11/05/16 [History] Losartan [Cozaar] 50 mg PO DAILY 11/05/16 [History] Aspirin EC [Ecotrin Low Dose] 81 mg PO DAILY 09/06/22 [History] Ezetimibe [Zetia] 10 mg PO DAILY 09/06/22 [History] Levothyroxine Sodium [Synthroid] 88 mcg PO DAILY 09/06/22 [History] Simvastatin [Zocor] 40 mg PO DAILY 09/06/22 [History] allopurinoL [Zyloprim] 100 mg PO DAILY 09/06/22 [History] cefUROXime axetiL [Ceftin] 500 mg PO BID 4 Days #8 tab 09/09/22 [Rx] Glimepiride [Amaryl] 1 mg PO BID 11/20/22 [History] Loteprednol Etabonate [Lotemax] 1 drop BOTH EYES BID 11/20/22 [History] predniSONE [Deltasone] 20 mg PO DAILY 11/20/22 [History] metFORMIN HCL [Glucophage] 850 mg PO BID-W/MEALS #30 tab 11/22/22 [Rx] Follow up Appointment(s)/Referral(s): David Ruiz [Primary Care Provider] - 1-2 days Ambulatory/Diagnostic Orders: Basic Metabolic Panel [LAB.AMB] Time Frame: 3 Days, Location: None Selected Patient Instructions/Handouts: Meal Planning with Diabetes Exchanges (DC), Diabetic Hyperglycemia (DC) Activity/Diet/Wound Care/Special Instructions: Recommend to follow up with outpatient diabetes education offered through [facility] [email or web address] [phone] [email or web address] [address] Continue to check blood glucose before meals and at bedtime keep log for follow up with Dr. Ruiz Continue on metformin twice a day, and also on glimiperide. Repeat labs in 2 to 3 days Discharge/Stand Alone Forms: Who Do I Call?, Community Resources Discharge Disposition: HOME SELF-CARE
== END 2022-11-22 15:32 | disposition home or self-care (01) ==
LOC: EC 11:51 → 6NMEDSUR 14:59
PROVIDERS: ADMIT Hospitalist; ATTEND Hospitalist
DX: E11.65 Type 2 diabetes mellitus with hyperglycemia (principal); N17.9 Acute kidney failure, unspecified; E86.0 Dehydration; E87.1 Hypo-osmolality and hyponatremia; K21.9 Gastro-esophageal reflux disease without esophagitis; E78.5 Hyperlipidemia, unspecified; I10 Essential (primary) hypertension; E03.9 Hypothyroidism, unspecified; E87.20 Acidosis, unspecified; R74.01 Elevation of levels of liver transaminase levels; Z86.718 Personal history of other venous thrombosis and embolism; Z79.899 Other long term (current) drug therapy; Z79.82 Long term (current) use of aspirin; Z79.890 Hormone replacement therapy; Z88.5 Allergy status to narcotic agent; Z91.040 Latex allergy status
CPT/HCPCS: 96372 ×3; 96361; 96374; 99285; 36415; 80053; 80048 ×3; 80076; 82009; 83605; 83735; 84484; 85025 ×2; 85610; 81003; 83036; 71046; G0378 ×3; J1644 ×2

== ENCOUNTER → 2023-01-06 | Outpatient (CLI) | payer MEDICARE, OTHER ==
[2023-01-06 11:43] LABS: African American GFR (CKD) 40 (>60 ml/min/1.73 sqM); Blood Urea Nitrogen 40 mg/dL (7-17); Non-African American GFR(CKD) 35 (>60 ml/min/1.73 sqM)
--- NOTE | 2023-01-06 13:10 | CT ---
EXAMINATION TYPE: CT brain wo con DATE OF EXAM: 01/06/2023 COMPARISON: 01/23/2021 HISTORY: Left side homonymous hemianopsia. CT DLP: 995.5 mGycm Automated exposure control for dose reduction was used. FINDINGS: Intracranial atherosclerotic changes most marked involving cavernous segment bilateral ICA. There is hyperostosis of the calvarium. There is no evidence of acute fracture or dislocation. Mild generalize d degenerative change. Calcification in the basal ganglia bilaterally. Orbits are symmetric bilateral ly. No acute hemorrhage or mass effect. Faint hypoattenuation in the white matter most typical remote white matter ischemia. Craniocervical junction maintained. Sella turcica and normal. IMPRESSION: MILD DEGENERATIVE CHANGES WITH NO EVIDENCE OF ACUTE INTRACRANIAL HEMORRHAGE OR MASS EFFECT. IF THERE IS CONCERN FOR ACUTE ISCHEMIA WOULD RECOMMEND FOLLOW-UP MRI.
== END | disposition home or self-care (01) ==
LOC: RADCTMAIN 10:43
PROVIDERS: ATTEND Ophthalmology
DX: H53.462 Homonymous bilateral field defects, left side (principal); G31.9 Degenerative disease of nervous system, unspecified; F40.240 Claustrophobia; I10 Essential (primary) hypertension; E11.9 Type 2 diabetes mellitus without complications
CPT/HCPCS: 70450; 82565; 84520

== ENCOUNTER → 2023-03-18 | Outpatient (CLI) | payer MEDICARE, OTHER ==
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
== END | disposition home or self-care (01) ==
LOC: RADXRMAIN 11:23
PROVIDERS: ATTEND Family Medicine
DX: M50.30 Other cervical disc degeneration, unspecified cervical region (principal)
CPT/HCPCS: 72050

== ENCOUNTER → 2023-04-06 | Outpatient (CLI) | payer MEDICARE, OTHER ==
--- NOTE | 2023-04-06 08:13 | MR ---
EXAMINATION TYPE: MR cervical spine wo con DATE OF EXAM: 04/06/2023 6:50 AM CLINICAL INDICATION:Female, 68 years old with history of M54.2 CERVICALGIA; Z98.890; [facility], COMPARISON: 03/18/2023. TECHNIQUE: Multi planar, multi sequence imaging was performed utilizing: T1-weighted, T2-weighted, an d turbo inversion recovery imaging of the cervical spine. IV Contrast: cc (none if empty) FINDINGS: Alignment: The cervical vertebral bodies have preserved heights. Alignment is within normal limits gi nighat patient positioning. Bones: Minimal osteophytes and disc space narrowing most pronounced at the C5-C7 vertebral levels. Cord: Somewhat motion limited exam scattered higher signal particularly at the level of C4-C5 may be artifactual. The spinal cord is unremarkable with regards to their signal intensity and morphology. Discs: Multilevel disc desiccation is present. C2-C3: A disc osteophyte complex is present with mild spinal canal stenosis. Bilateral facet and unc overtebral joint arthropathy are present with mild right and [id number] left bilateral neural f oraminal stenosis. C3-C4: A disc osteophyte complex is present with mild spinal canal stenosis. Bilateral facet and unc overtebral joint arthropathy are present with moderate left and mild to moderate neural foraminal vandana nosis. C4-C5: A disc osteophyte complex is present with mild spinal canal stenosis. Bilateral facet and unc overtebral joint arthropathy are present with moderate to severe bilateral neural foraminal stenosis. C5-C6: A disc osteophyte complex is present with mild spinal canal stenosis. Bilateral facet and unc overtebral joint arthropathy are present with moderate to severe bilateral neural foraminal C6-C7: Left disc osteophyte complex which effaces the spinal cord series 601 image 13. Bilateral fac et and uncovertebral joint arthropathy are present with moderate left and mild to moderate right neur al foraminal stenosis. C7-T1: No significant disc pathology. The spinal canal is patent. No neural foraminal stenosis. Other: None. IMPRESSION: 1. C6-C7 left disc osteophyte complex which displaces the spinal cord. Cord signal at this area medi ally is maintained. 2. Multilevel degeneration changes with spurring with neural foraminal stenosis worse at C4-C5, C5-C 6 with moderate to severe bilaterally. 3. Motion limited exam for cord signal. C5 spinal cord is punctate foci bilaterally within the cord of increased cord signal. Considered short-term follow-up.
== END | disposition home or self-care (01) ==
LOC: RADMRIMAIN 05:34
PROVIDERS: ATTEND Family Medicine
DX: M99.71 Connective tissue and disc stenosis of intervertebral foramina of cervical region (principal); M47.812 Spondylosis without myelopathy or radiculopathy, cervical region; M25.78 Osteophyte, vertebrae; Z98.890 Other specified postprocedural states
CPT/HCPCS: 72141

== ENCOUNTER → 2023-05-04 | Outpatient (CLI) | payer MEDICARE, OTHER ==
--- NOTE | 2023-05-07 16:02 | MR ---
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 COMPARISON: 01/23/2021, 08/15/2020. TECHNIQUE: Multi planar, multi sequence imaging was performed through the brain including: T1, T2, In version recovery, Diffusion weighted imaging, and gradient echo imaging. No gadolinium was given. TECHNIQUE: Multi planar, multi sequence imaging was performed utilizing: T1-weighted, T2-weighted, a nd turbo inversion recovery imaging of the lumbar spine. IV Contrast: cc . None. FINDINGS: Brain: The cee-white junctions, ventricular system, and cisterns appear unremarkable. Scattered foci of hi gh T2 signal intensity are seen within the periventricular white matter. Midline structures show no a bnormality. Diffusion-weighted imaging shows no evidence of restricted diffusion. The susceptibility weighted images do not reveal any evidence for micro-hemorrhage. The bone marrow signal is within normal limits. Paranasal sinuses and mastoid air cells: No significant paranasal sinus disease. Visualized orbits: Bilateral aphakia. L Spine: Alignment: The lumbar vertebral bodies have preserved heights and alignment. Cord: The conus medullaris and the distal spinal cord appear unremarkable with regards to their signa l intensity and morphology. Bones/Discs: Multilevel degeneration changes throughout the lumbar spine. Mild osteophyte formation, disc space narrowing and facet joint arthropathy. There is pseudarthrosis of the spinous processes. A bnormal bony edema on inversion recovery sequences. T12-L1: No evidence of significant spinal canal stenosis or neural foraminal stenosis. L1-L2: Disc bulge and facet joint arthropathy without significant spinal canal stenosis and moderate bilateral neural foraminal stenosis. L2-L3: Osteophyte, Disc bulge and facet joint arthropathy result in mild spinal canal and moderate bi lateral neural foraminal stenosis. L3-L4: Osteophyte, Disc bulge and facet joint arthropathy result in moderate spinal canal and moderat e bilateral neural foraminal stenosis. L4-L5: Osteophyte, Disc bulge and facet joint arthropathy result in moderate spinal canal and moderat e bilateral neural foraminal stenosis. L5-S1: The disc is rounded posterior morphology without significant spinal canal stenosis. Facet join t arthropathy with mild neural foraminal stenosis. No significant spinal canal or neural foraminal stenosis in the remainder of the visualized levels. Other findings: None. IMPRESSION: Lumbar spine: 1. No definitive evidence of disc herniation or significant spinal canal stenosis. 2. Multilevel moderate disc degeneration with associated osteoarthritic changes with moderate neural foraminal stenosis throughout the spine. Moderate spinal canal stenosis L4-L5 and L3-L4. 3. Findings suspicious for Baastrup's disease. Brain: 1. No evidence of intracranial mass or acute/subacute infarct. No evidence for hydrocephalus. 2. Nonspecific white matter changes, likely secondary to small vessel ischemic disease.
== END | disposition home or self-care (01) ==
LOC: RADMRIMAIN 06:01
PROVIDERS: ATTEND Neurological Surgery
DX: G91.2 (Idiopathic) normal pressure hydrocephalus (principal); M47.26 Other spondylosis with radiculopathy, lumbar region; G31.9 Degenerative disease of nervous system, unspecified; M99.73 Connective tissue and disc stenosis of intervertebral foramina of lumbar region
CPT/HCPCS: 70551; 72148

== ENCOUNTER 2024-06-19 09:03 | Day surgery (SDC) | payer MEDICARE, OTHER ==
[~2024-06-19 09:03] MED LIST: LIDOCAINE 1% (10MG/ML) FOR IV START INTRADERMA PRN
[2024-06-19] MEDS: LACTATED RINGERS 1,000 ML IV SCH (09:31)
[2024-06-19 09:35] VITALS: RESP 16; TEMP 98
[2024-06-19 09:37] LABS: Glucose,Whole Blood 157 mg/dL (70-110)
[2024-06-19] MEDS: LACTATED RINGERS 1,000 ML IV ONE (09:43)
[2024-06-19] MEDS ORDERED: PROPOFOL 10 MG/ML 20 ML VIAL IV ONE (09:44)
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
--- NOTE | 2024-06-19 10:06 | P.PCN ---
Date of Procedure: 06/19/24 Procedure(s) Performed: PREOPERATIVE DIAGNOSIS: Rectal bleeding POSTOPERATIVE DIAGNOSIS: Rectal mass PROCEDURE: Colonoscopy with biopsy ANESTHESIA: MAC SURGEON: Doom Starks M.D. SPECIMENS: Rectal mass ENDOSCOPIC PROCEDURE: The patient was placed on the endoscopy table in the left decubitus position. The Olympus colonoscope was inserted into the anus and passed under direct visualization to the base of the cecum. The appendiceal orifice was visualized. From that point the scope was slowly withdrawn inspecting all surfaces carefully. There were no neoplastic inflammatory or polypoid lesions throughout the cecum, ascending, transverse, descending, and sigmoid colon. The patient had a large mass extending from 5 cm to 15 cm. This was encompassing 80% of the circumference of the rectum. Multiple biopsies were taken. This mass was easily palpable on rectal exam. The patient was taken to t he recovery room in stable condition per anesthesia guidelines. RECOMMENDATIONS: Await biopsy results. Follow-up in office.
[2024-06-19 10:09] VITALS: PULSE 82
[2024-06-19 11:01] LABS: Basophils # (A) 0.07 10*3/uL (0.00-0.10); Basophils % (A) 0.5 %; Eosinophils # (A) 0.27 10*3/uL (0.04-0.35); Eosinophils % (A) 2.1 %; HCT 36.2 % (37.2-46.3); HGB 12.6 g/dL (12.0-15.0); Lymphocytes # (A) 1.82 10*3/uL (0.90-5.00); Lymphocytes % (A) 14.1 %; MCH 31.9 pg (27.0-32.0); MCHC 34.8 g/dL (32.0-37.0); MCV 91.6 fL (80.0-97.0); Monocytes # (A) 0.82 10*3/uL (0.20-1.00); Monocytes % (A) 6.3 %; Neutrophils # (A) 9.88 10*3/uL (1.80-7.70); Neutrophils % (A) 76.5 %; Platelet Count 256 10*3/uL (140-440); RBC 3.95 10*6/uL (4.10-5.20); WBC 12.92 10*3/uL (4.50-10.00)
[2024-06-19 11:12] LABS: ALT 20 U/L (4-34); AST 23 U/L (14-36); African American GFR (CKD) 55 (>60 ml/min/1.73 sqM); Albumin 3.8 g/dL (3.5-5.0); Alkaline Phosphatase 106 U/L (38-126); Anion Gap 12 mmol/L; Blood Urea Nitrogen 21 mg/dL (7-17); Calcium 10.1 mg/dL (8.4-10.2); Carbon Dioxide 27 mmol/L (22-30); Chloride 99 mmol/L (98-107); Glucose 133 mg/dL (74-99); Non-African American GFR(CKD) 47 (>60 ml/min/1.73 sqM); Potassium 3.7 mmol/L (3.5-5.1); Sodium 138 mmol/L (137-145); Total Bilirubin 0.6 mg/dL (0.2-1.3); Total Protein 6.8 g/dL (6.3-8.2)
[2024-06-19 11:22] VITALS: BP 115/76
== END 2024-06-19 11:23 | disposition home or self-care (01) ==
LOC: ORWHC2ENDO 09:03
PROVIDERS: ATTEND Surgery
DX: C20 Malignant neoplasm of rectum (principal); E03.9 Hypothyroidism, unspecified; E11.9 Type 2 diabetes mellitus without complications; E78.5 Hyperlipidemia, unspecified; I10 Essential (primary) hypertension; Z79.84 Long term (current) use of oral hypoglycemic drugs; Z79.890 Hormone replacement therapy; Z86.718 Personal history of other venous thrombosis and embolism; Z88.5 Allergy status to narcotic agent; Z90.49 Acquired absence of other specified parts of digestive tract; Z91.040 Latex allergy status; Z98.51 Tubal ligation status; Z79.899 Other long term (current) drug therapy
CPT/HCPCS: 88305; 80053; 82378; 85025; 88342; 88341; 45380; J2704

== ENCOUNTER → 2024-07-05 | Outpatient (CLI) | payer MEDICARE, OTHER ==
[2024-07-05 11:19] LABS: African American GFR (CKD) 46 (>60 ml/min/1.73 sqM); Blood Urea Nitrogen 45 mg/dL (7-17); Non-African American GFR(CKD) 40 (>60 ml/min/1.73 sqM)
--- NOTE | 2024-07-05 14:12 | CT ---
EXAMINATION TYPE: CT chest w con DATE OF EXAM: 07/05/2024 12:42 PM COMPARISON: None CLINICAL INDICATION: Female, 69 years old with history of C50.812 breast ca; PHH, COLON CA TECHNIQUE: Multiple axial images were obtained through the chest. Sagittal and coronal reformats were created for review. MIP was performed on a separate workstation. Contrast used:80 ml mL of Isovue [address] DLP: 2241 mGycm, Automated exposure control for dose reduction was used. FINDINGS: Heart upper limits of normal size without pericardial effusion. Mild proximal LAD coronary calcificat ions are present. Aorta normal caliber with mild to moderate atherosclerotic arch calcifications and intramedullary ves she branching anatomy. No thoracic lymphadenopathy by CT size criteria. Strandy atelectasis and scarring in the lower lungs. Additional hazy dependent atelectasis. There may be minimal emphysematous change. No consolidation or pleural effusion seen. No suspicious pulmonary nodule identified. Visualized upper abdomen shows cholecystectomy clips and a tiny anterior splenule. Moderate atheroscl erotic calcifications within the visualized abdominal aorta. Bones: Moderate degenerative disc disease lower thoracic spine. Partially visualized ACDF hardware. IMPRESSION: 1. No suspicious pulmonary nodules. There may be minimal emphysematous change. 2. No acute pulmonary process. Prominent hazy dependent atelectasis and strandy scarring/atelectasis at the lung bases. [facility], , 07/05/2024 2:09 PM
--- NOTE | 2024-07-05 14:15 | CT ---
EXAMINATION TYPE: CT pelvis w con DATE OF EXAM: 07/05/2024 12:42 PM COMPARISON: 08/15/2020 CLINICAL INDICATION: Female, 69 years old with history of C50.812 breast ca; COLON CA TECHNIQUE: Axial CT pelvis with IV contrast;Sagittal and coronal reformats were created on a [employer] workstation. Delayed images through the bladder are obtained. Contrast used:80 ml mL of Isovue 300 with IV Contrast, Oral contrast used: with Oral Contrast CT DLP: 2241 (combined) mGycm, Automated exposure control for dose reduction was used. FINDINGS: Moderate atherosclerotic calcifications visualized distal abdominal aorta. Mild to moderate stool in the visualized colon. There is some annular thickening of the rectum, axial image 40. Possibly related to colon cancer as indicated in the history or nondistention. Uterus anteverted. Both ovaries are visualized. Bladder is collapsed but shows some circumferential w all thickening. No abnormal fluid collection in the pelvis or pelvic lymphadenopathy. Mild degenerative change of the hips. Hypertrophic facet arthropathy lower lumbar spine with degener ative grade 1 anterolisthesis L5-S1. IMPRESSION: 1. Annular soft tissue thickening of the rectum may be due to nondistention. Correlate as to the sit e of patient's colon cancer. Direct visualization as clinically indicated. 2. No abnormal adenopathy in the lower abdomen or pelvis. 3. Circumferential bladder wall thickening may be chronic for the patient. Correlate to exclude cysti tis. [facility], , 07/05/2024 2:12 PM
== END | disposition home or self-care (01) ==
LOC: RADCTMAIN 10:23
PROVIDERS: ATTEND Surgery
DX: C20 Malignant neoplasm of rectum (principal); J43.9 Emphysema, unspecified; J98.11 Atelectasis; K62.89 Other specified diseases of anus and rectum; N32.89 Other specified disorders of bladder
CPT/HCPCS: 82565; 84520; 72193; 71260; 36415; Q9967

== ENCOUNTER 2024-08-13 07:31 | Day surgery (SDC) | payer MEDICARE, OTHER ==
[2024-08-09 11:52] VITALS: BMI 39.9
[~2024-08-13 07:31] MED LIST changes: -LIDOCAINE 1% (10MG/ML) FOR IV START INTRADERMA PRN; +Pre Op ABX Message 1 EACH MISC MISCELLANE ONE
[2024-08-13 07:59] VITALS: RESP 16
[2024-08-13] MEDS: IV FLUID CONTINUATION 1,000 ML IV ONE (08:08)
[2024-08-13] MEDS: LACTATED RINGERS 1,000 ML BAG IV STA (08:08)
[2024-08-13] MEDS: ONDANSETRON 4 MG/2 ML VIAL IVP STA (08:09)
[2024-08-13] MEDS: HEPARIN SODIUM,PORCINE 5,000 UNIT/ML 1 ML VIAL SQ PRN (08:09)
[2024-08-13] MEDS: ACETAMINOPHEN TAB 500 MG TAB PO PRN (08:09)
[2024-08-13 08:11] LABS: Glucose,Whole Blood 124 mg/dL (70-110)
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
[2024-08-13] MEDS ORDERED: PROPOFOL 10 MG/ML 20 ML VIAL IV ONE (08:40)
[2024-08-13] MEDS ORDERED: SUCCINYLCHOLINE CHLORIDE 200 MG/10 ML VIAL IV ONE (08:40)
[2024-08-13] MEDS ORDERED: MIDAZOLAM 2 MG/2 ML VIAL ONE (08:40)
[2024-08-13] MEDS ORDERED: PHENYLEPHRINE 10 MG/ML VIAL ONE (08:40)
[2024-08-13] MEDS ORDERED: fentaNYL (PF) 50 MCG/ML 2 ML AMP ONE (08:40)
[2024-08-13] MEDS ORDERED: LIDOCAINE 1% INJ 10MG/ML (20 ML MDV) ONE (08:40)
[2024-08-13] MEDS ORDERED: fentaNYL (PF) 50 MCG/ML 2 ML AMP IV PRN (08:44)
[2024-08-13] MEDS ORDERED: LACTATED RINGERS 1,000 ML IV SCH (08:44)
[2024-08-13] MEDS: SODIUM CHLORIDE 0.9% 50 ML with ceFAZolin 2,000 MG IV ONE (08:44)
[2024-08-13] MEDS ORDERED: DEXAMETHASONE SOD PHOSPHATE 4 MG/ML 1 ML VIAL IV ONE (08:44)
[2024-08-13] MEDS ORDERED: ONDANSETRON 4 MG/2 ML VIAL IVP ONE (08:44)
[2024-08-13] MEDS: BUPIVACAINE (PF) 0.25% 30 ML VIAL SQ ONE ×3 (09:06→09:09)
[2024-08-13] MEDS: LACTATED RINGERS 1,000 ML IV ONE (09:28)
[2024-08-13 09:48] VITALS: TEMP 97.2
[2024-08-13] MEDS ORDERED: NALOXONE 0.4 MG/ML 1 ML VIAL IV PRN (09:52)
--- NOTE | 2024-08-13 09:53 | P.OP ---
Date of Procedure: 08/13/24 Procedure(s) Performed: PREOPERATIVE DIAGNOSIS: Rectal cancer POSTOPERATIVE DIAGNOSIS: Same PROCEDURE: Port-A-Cath placement with fluoroscopic and ultrasound guidance SURGEON: Raudel EBL: Minimal ANESTHESIA: General COMPLICATIONS: None OPERATIVE PROCEDURE: Patient was brought and placed on the operative table in the supine position. The patient was placed under general anesthesia at that time. The chest and neck were prepped and draped in usual sterile fashion. The ultrasound probe was used to identify the location of the right internal jugular vein. The skin was localized with lidocaine. The Seldinger needle was advanced into the IJ under ultrasound guidance. The wire was advanced through the needle under fluoroscopic guidance into the superior vena cava. A port pocket was created in the right infraclavicular location. The catheter was tunneled from the wire entrance site to the port pocket. The port was then connected to the catheter. The dilator introducer was threaded over the guidewire. The guidewire and dilator were then removed. The catheter was advanced through the introducer and introducer was then removed. The tip was seen to be in the right atrial junction via fluoroscopy. A picture of the radiograph showing the tip of the catheter was taken. Port was flushed with both saline and a Hep-Lock solution. There was good flow both in and out of the port. The port was sutured in underlying tissues using 3-0 silk sutures. The subcutaneous tissues were reapproximated using 3-0 Vicryl sutures and the skin at both locations using 4-0 Monocryl sutures. Skin glue and sterile dressings then applied. DISPOSITION: Stable to recovery room
--- NOTE | 2024-08-13 10:04 | FL ---
EXAMINATION TYPE: FL guided central line placemt DATE OF EXAM: 08/13/2024 FLUOROSCOPY Right-sided Port-A-Cath Insertion 3sec fluoro time .[id number] Starks 4 images are submitted. [facility], , 08/13/2024 10:02 AM
[2024-08-13 10:09] LABS: Glucose,Whole Blood 124 mg/dL (70-110)
--- NOTE | 2024-08-13 10:14 | XR ---
EXAMINATION TYPE: XR chest 1V confirm line [facility] DATE OF EXAM: 08/13/2024 COMPARISON: 11/20/2022 CLINICAL INDICATION: Female, 69 years old with history of Check line placement; TECHNIQUE: Single frontal view of the chest is obtained. FINDINGS: Right anterior chest wall injection port with catheter tip at the mid SVC level. Heart mildly enlarge d. Diffuse interstitial opacities and patchy left basilar opacity now present. Suspect fluid thickeni ng the right major fissure. ACDF hardware. IMPRESSION: 1. Mild cardiomegaly with interstitial densities. Consider CHF with pulmonary vascular congestion. 2. Additional patchy atelectasis versus developing infiltrate at the left base. Correlate with sympto ms. [facility], , 08/13/2024 10:12 AM
[2024-08-13 11:11] VITALS: BP 111/44; PULSE 60
== END 2024-08-13 11:33 | disposition home or self-care (01) ==
LOC: OR 07:31
PROVIDERS: ATTEND Surgery
DX: C20 Malignant neoplasm of rectum (principal); Z45.2 Encounter for adjustment and management of vascular access device; E03.9 Hypothyroidism, unspecified; E11.9 Type 2 diabetes mellitus without complications; E78.5 Hyperlipidemia, unspecified; I11.9 Hypertensive heart disease without heart failure; Z79.84 Long term (current) use of oral hypoglycemic drugs; Z79.890 Hormone replacement therapy; Z87.891 Personal history of nicotine dependence; Z88.5 Allergy status to narcotic agent; Z91.040 Latex allergy status
CPT/HCPCS: 77001; 36561; C1788; J2250; J0330; J1644; J2405; J0690; J2003; J3010; J1642; J2704; J2371; J0665

== ENCOUNTER → 2024-08-27 | Outpatient (CLI) | payer MEDICARE, OTHER ==
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
== END | disposition home or self-care (01) ==
LOC: RADUSWWP 10:11
PROVIDERS: ATTEND Internal Medicine Hematology & Oncology
DX: R22.43 Localized swelling, mass and lump, lower limb, bilateral (principal)
CPT/HCPCS: 93970